=== PATIENT | female | born 1950 | race Caucasian/White ===

== ENCOUNTER → 2019-04-23 14:22 | Outpatient (CLI) | payer MEDICARE, SELFPAY ==
--- NOTE | ~2019-04-23 | XR_ITS ---
XR lumbar spine 2-3V DATE: 04/23/2019 14:39 INDICATION: Low back pain TECHNIQUE: AP, lateral, coned lateral lumbosacral views COMPARISON: None FINDINGS: Diffuse osteopenia. Mild dextroscoliosis of the lumbar spine. There is prominent degenerative change at the apophyseal joints in the lower lumbar and lumbosacral a brown with associated grade 1 anterolisthesis at L4-5. There is mild degenerative disease at L1-2, L2-3, mild/moderate degenerative disc disease at L3-4. There is severe degenerative disc disease at L5-S1. No fracture or bone destruction is evident. The included lower thoracic and lumbar pedicles are intac t. The sacroiliac joints are normal. Surgical clips, right upper quadrant, likely due to cholecystectomy. IMPRESSION: Degenerative changes including multilevel degenerative disease, most severe at L5-S1, and degenerative change at the apophyseal joints with associated grade 1 anterolisthesis at L4-5 Reviewed, dictated and finalized at location B. ROLOGIST IMPRESSION: Degenerative changes including multilevel degenerative disease, mos t severe at L5-S1, and degenerative change at the apophyseal joints with associ ated grade 1 anterolisthesis at L4-5
== END ==
PROVIDERS: PCP Family Medicine Adolescent Medicine; Visit Provider Family Medicine Adolescent Medicine
DX: M54.5 Low back pain (principal); M51.37 Other intervertebral disc degeneration, lumbosacral region; M43.16 Spondylolisthesis, lumbar region
CPT/HCPCS: 72100

== ENCOUNTER → 2019-10-04 12:47 | Outpatient (CLI) | payer MEDICARE, SELFPAY ==
--- NOTE | ~2019-10-04 | XR_ITS ---
EXAMINATION: XR hip BI wo pelvis DATE: 10/04/2019 13:07 INDICATION: Bilateral hip pain. TECHNIQUE: 2 views of right hip and 2 views of left hip were obtained. COMPARISON: None. FINDINGS: Bone alignment is normal. No fracture. There is severe osteoarthritis of the hips. Osteitis pubis is noted. IMPRESSION: 1. Severe osteoarthritis of the hips. Reviewed, dictated and finalized at location A.
== END ==
PROVIDERS: PCP Family Medicine Adolescent Medicine; Visit Provider Family Medicine Adolescent Medicine
DX: M25.552 Pain in left hip (principal); M25.551 Pain in right hip; M16.0 Bilateral primary osteoarthritis of hip
CPT/HCPCS: 73521

== ENCOUNTER → 2019-10-16 10:08 | Outpatient (CLI) | payer MEDICARE, SELFPAY ==
--- NOTE | ~2019-10-16 | DEXA_ITS ---
Bone Density Report Name: Darlene Verdugo Age: 69 Sex: Female Ethnicity: White Date of : 1950 Indication: postmenopausal; screening for osteoporosis; prior fracture; hysterectomy; Referring Provider: YANI ALVAREZ Study: Bone densitometry was performed. Exam Date: October 16, 2019 Accession number: [id number] Bone Density: Region BMD T-score Z-score Classification AP Spine (L1-L4) 1.010 -0.3 1.7 Normal Femoral Neck (Left) 0.680 -1.5 0.2 Osteopenia Total Hip (Left) 0.877 -0.5 0.9 Normal Femoral Neck (Right) 0.713 -1.2 0.5 Osteopenia Total Hip (Right) 0.828 -0.9 0.5 Normal Total Hip Mean 0.853 -0.7 0.7 Normal World Health Organization criteria for BMD impression classify patients as: Normal (T-score at or above -1.0), Osteopenia (T-score between -1.0 and -2.5), or Osteoporosis (T-score at or below -2.5). 10-year Fracture Risk(1): Major Osteoporotic Fracture 14% Hip Fracture 1.6% Reported Risk Factors: [place] (), Neck BMD=0.680, BMI=41.4, previous fracture (1) FRAX(R) Version 3.08. Fracture probability calculated for an untreated patient. Fracture probability may be lower if the patient has received treatment. Clinical Information Provided by Patient: Has had a low trauma fracture Has used the following medications: Vitamin D, Calcium Has the following medical conditions: Hysterectomy Patient maximum height was 64 Menopause Age: 53 No regular weight bearing exercise Does not regularly consume dairy products Drinks caffeinated beverages Onset of menses at age 12 Number of children 2 Impression: The patient has low bone mass, based on the Left Femoral Neck T-score. The patient has an estimated ten-year risk of hip fracture of 1.6% and an estimated ten-year risk of major fracture of 14%, based on the WHO FRAX algorithm. The patient has risk factors, including: previous fracture. Discussion: BONE DENSITY IS LOW AT ONE OR MORE SKELETAL SITES. This patient's lowest T-score is low at one or more skeletal sites. It meets the World Health Organization's (WHO) criteria for ?low bone mass? (T-score between -1.0 and -2.5). The patient's 10-year risk of fracture as calculated by FRAX is less than the threshold where pharmacological therapy is recommended by the National Osteoporosis Foundation (NOF). However, all treatment decisions require clinical judgment and consideration of individual patient factors, including patient preferences, comorbidities, previous drug use, risk factors not captured in the FRAX model (e.g., frailty, falls, vitamin D deficiency, increased bone turnover, interval significant decline in bone density) and possible under or overestimation of fracture risk by FRAX. The patient should follow a healthful lifestyle (good nutrition with adequate calcium and vitamin
== END ==
PROVIDERS: PCP Family Medicine Adolescent Medicine; Visit Provider Family Medicine Adolescent Medicine
DX: Z78.0 Asymptomatic menopausal state (principal); M85.89 Other specified disorders of bone density and structure, multiple sites
CPT/HCPCS: 77080

== ENCOUNTER 2019-12-28 06:47 | Outpatient (NON) | payer MEDICARE, SELFPAY ==
[2019-12-28 17:45] LABS: SARS-CoV-2 RNA PCR Positive
== END 2019-12-28 06:48 ==
PROVIDERS: PCP Family Medicine Adolescent Medicine; Visit Provider Family Medicine Adolescent Medicine
DX: U07.1 COVID-19 (principal)
CPT/HCPCS: 87635; C9803; U0003

== ENCOUNTER 2020-03-27 09:44 | Outpatient (CLI) | payer MEDICARE, SELFPAY ==
--- NOTE | 2020-03-27 | ECG_ITS ---
Measurements Intervals [place] Rate: 88 P: 38 MI: 163 QRS: 5 QRSD: 93 T: 73 QT: 363 QTc: 441 Interpretive Statements SINUS RHYTHM VENTRICULAR BIGEMINY POSSIBLE LEFT ATRIAL ENLARGEMENT DELAYED PRECORDIAL R/S TRANSITION NONSPECIFIC T-WAVE ABNORMALITY- HIGH LATERAL LEADS ABNORMAL ECG Electronically Signed On 03-27-2020 11:15:00 BUSINESS TEAM LEADER by Eduardo Aguilar D.O.
[2020-03-27 10:32] LABS: Albumin Level 4.3 g/dL (3.5-5.1); Estimated Glomerular Filt Rate > 60
== END 2020-03-27 09:45 | disposition home or self-care (01) ==
PROVIDERS: PCP Family Medicine Adolescent Medicine; Visit Provider Orthopaedic Surgery
DX: Z01.818 Encounter for other preprocedural examination (principal); M16.11 Unilateral primary osteoarthritis, right hip; R94.31 Abnormal electrocardiogram [ECG] [EKG]
CPT/HCPCS: 36415; 82040; 82565; 93005

== ENCOUNTER 2020-04-09 07:55 | Outpatient (CLI) | payer MEDICARE, SELFPAY ==
[2020-04-09 09:09] LABS: Basophils Absolute Auto 0.1 K/mm3 (0.0-0.1); Basophils Percent Auto 0.8 % (0.2-1.2); Eosinophils Absolute Auto 0.2 K/mm3 (0-0.3); Eosinophils Percent Auto 2.2 % (0-4.4); Hematocrit 46.1 % (37.0-47.0); Hemoglobin 15.4 g/dL (12.0-15.0); Immature Granulocyte Absolute 0.03 K/mm3 (0.00-0.031); Immature Granulocyte Percent A 0.4 % (0-0.5); Lymphocytes Absolute Auto 2.14 K/mm3 (0.9-3.2); Lymphocytes Percent Auto 27.4 % (18.3-44.2); Mean Corpuscular HGB Conc 33.4 g/dl (32-36); Mean Corpuscular Volume 95.8 fl (80-100); Mean Platelet Volume 11.3 fl (7.4-10.4); Monocytes Absolute Auto 0.7 K/mm3 (0.1-0.6); Monocytes Percent Auto 9.5 % (2.6-8.5); Neutrophils Absolute Auto 4.7 K/mm3 (1.3-6.7); Neutrophils Percent Auto 59.7 % (45.5-73.1); Platelet Count Result 184 k/mm3 (150-375); Red Blood Count 4.81 M/mm3 (4.2-5.4); Red Cell Distribution Width 13.3 % (11.5-14.5); White Blood Count 7.8 K/mm3 (4.5-10.0)
[2020-04-09 09:19] LABS: Glucose 119 mg/dL (65-105)
[2020-04-09 09:23] LABS: Urine Cotinine NEGATIVE
== END 2020-04-09 07:56 | disposition home or self-care (01) ==
LOC: ANHSURGERY 07:59
PROVIDERS: PCP Family Medicine Adolescent Medicine; Visit Provider Orthopaedic Surgery
DX: Z01.818 Encounter for other preprocedural examination (principal); M16.0 Bilateral primary osteoarthritis of hip
CPT/HCPCS: 80307; 82947; 83036; 85025; 86850; 86900; 86901; 87081

== ENCOUNTER → 2020-04-19 01:03 | Outpatient (CLI) | payer MEDICARE, SELFPAY ==
[2020-04-19 19:48] LABS: SARS-CoV-2 RNA PCR Negative
== END ==
PROVIDERS: PCP Family Medicine Adolescent Medicine; Visit Provider Orthopaedic Surgery
DX: Z01.812 Encounter for preprocedural laboratory examination (principal); Z20.822 Contact with and (suspected) exposure to COVID-19
CPT/HCPCS: C9803; U0003; U0005

== ENCOUNTER 2020-04-22 00:42 | Day surgery (SDC) | payer MEDICARE, SELFPAY ==
[2020-04-09 08:26] VITALS: BMI 38.9
--- NOTE | 2020-04-21 11:05 | WPDANESEPPF ---
Anes - Initial Pre Proc Eval Procedure: Operation Date: 04/22/20 11:00 Proposed Procedures p Right Total Hip Arthroplasty - Roosevelt Metz MD Date/Time: 04/21/20 11:05 Surgeon: Roosevelt Metz MD Pre Op Diagnosis: Primary OA Right Hip Patient Data Age: 70 Gender: F Height: 1.63 m Weight: 103.1 kg Allergies Allergy/AdvReac Type Severity Reaction Status Date / Time Penicillins Allergy Unknown Rash Verified 04/22/20 09:40 Home Medications Medication Instructions Recorded Confirmed Type atorvastatin 20 mg tablet 20 mg PO QAM 01/02/20 04/22/20 History calcium carbonate-vitamin D3 600 1 tablet PO BID 01/02/20 04/22/20 History mg (1,500 mg)-800 unit tablet diclofenac sodium 75 mg 75 mg PO BID 01/02/20 04/22/20 History tablet,delayed release pantoprazole 40 mg tablet,delayed 40 mg PO QAM 01/02/20 04/22/20 History release vitamin B complex 1 tablet PO QAM 01/02/20 04/22/20 History cholecalciferol (vitamin D3) 125 mcg PO 3XW 04/09/20 04/22/20 History Patient hx anesthesia problems: none Family hx anesthesia problems: none PMFSH Past Medical History Medical History (Updated 04/21/20 @ 11:07 by Aman Jack DO) Brain tumor age 6 Carpal tunnel syndrome of right wrist (~1998) GERD (gastroesophageal reflux disease) Hyperlipidemia Osteoarthritis PONV (postoperative nausea and vomiting) SVT (supraventricular tachycardia) s/p ablation 2012 Surgical History Surgical History (Updated 04/21/20 @ 11:07 by Aman Jack DO) History of breast lump removal (~2012) Left breast History of cholecystectomy History of hysterectomy (~2002) Family History Family History Other Family history of cardiovascular disease Social History Social History Smoking status: Former smoker Tobacco type: cigarettes Second hand tobacco smoke exposure: No Smoking end date: 03/07/88 Alcohol intake: current Substance use: never Substance use type: does not use Living arrangements: with family Spiritual care concerns: No Anes - Eval Final PreProcedure Day of Procedure 04/21/20 11:05 Patient weight: obese Heart: regular rate and rhythm Lungs: clear to auscultation and normal air movement Airway: Mallampati scale class III Neurological: alert and oriented Last oral intake: >/= 8 hours ASA classification: III Emergent: no Anesthetic plan: proceed Anesthesia type and monitoring: general ETT and standard monitoring Informed Consent: The patient's anesthetic plan and its attendant risks and benefits were discussed with the patient/family/POA. Questions were solicited and answers provided to the satisfaction of the patient/family/POA.
[2020-04-22] VITALS (19 sets, daily range): BP systolic 90–135; BP diastolic 52–80; PULSE 50–94; RESP 7–18; TEMP 36.1–36.5; O2SAT 94–99; BMI 43.8
--- NOTE | ~2020-04-22 | XR_ITS ---
EXAMINATION: XR hip RT min 2V DATE: 04/22/2020 14:31 INDICATION: Postoperative evaluation following right total hip arthroplasty TECHNIQUE: Anteroposterior and cross-table lateral views of the right hip were obtained. COMPARISON: None. FINDINGS: Interval placement of a noncemented right total hip arthroplasty which is in near-anatomic alignment. No fracture. Bilateral sacral joint spaces appear relatively preserved. Minimal postoperative gas at the operative bed. IMPRESSION: 1. Right total hip arthroplasty in near-anatomic alignment, negative for postoperative purposes. Reviewed, dictated and finalized at location A. INE OPERATOR IMPRESSION: 1. Right total hip arthroplasty in near-anatomic alignment, negative for postop erative purposes.
[2020-04-22] MEDS: ACETAMINOPHEN 500 MG TABLET 1000 MG PO (09:21)
[2020-04-22] MEDS: LACTATED RINGERS 1,000 ML 30 ML IV CONT ×2 (09:25→13:51)
[2020-04-22] MEDS: TRANEXAMIC ACID 1,000MG/ISO100 1,000 MG/100 ML BAG 200 MG IVPB (09:32)
--- NOTE | 2020-04-22 10:09 | WPDHPUPDATE1 ---
History and Physical Update Update Date/Time: 04/22/20 10:09 History and Physical has been reviewed, including an updated exam of the patient. There are NO changes in the patient's condition. Risks, benefits, and alternatives have been discussed and questions answered. Patient agrees to proceed with procedure.
[2020-04-22] MEDS: FAMOTIDINE 20 MG/2 ML VIAL IV PUSH (10:44)
[2020-04-22] MEDS: CLINDAMYCIN 900 MG/D5W 50 ML 900 MG/50 ML PIGGYBACK 50 MG IVPB (11:14)
[2020-04-22] MEDS: ceFAZolin SODIUM 1 GM VIAL 2 GM IV PUSH (13:41)
[2020-04-22] MEDS: fentaNYL CITRATE INJ (*CRX) 100 MCG/2 ML VIAL 25 MCG IV PUSH (15:08)
--- NOTE | 2020-04-22 15:34 | PM.PROC ---
Procedure Note - Detailed Date of procedure: 04/22/20 Pre-op diagnosis: Primary OA Right Hip Post-op diagnosis: same Procedure performed: Total hip arthroplasty, right. Description of procedure: Surgical exposure was more extensive due to morbid obesity. Bone quality was excellent. The acetabulum had a false floor which was reamed. The anatomic dual mobility component fit nearly anatomically. Bleeding was slightly more than average but was well controlled with the Aquamantys bipolar electrocautery device. No deep drains were necessary. Implants: The Accolade II hip stem, 127 degree size 5 , was utilized with excellent press-fit. The 50 mm ADM acetabular component was impacted with excellent press-fit stability. The +0 , 28 mm Biolox ceramic femoral head was utilized. [facility] Surgeon: Roosevelt Metz MD Paintings Conservator: Annamarie Calderón PA-C Estimated blood loss (mL): 500 Drains: No Complications: None Condition: stable Disposition: PACU Findings: Physician recreational assistant, Annamarie Calderón PA-C, required for surgery; including patient positioning, draping, tissue retraction, maintaining instrument position, hip reduction, wound closure, and dressing placement. OPERATIVE DETAILS: The patient was given preoperative antibiotics. A general anesthetic was administered. The patient was carefully placed in the lateral decubitus position on the PEG board. The shoulders and hips were carefully positioned for component and leg length positioning reference. The hip was prepped and draped in the usual sterile fashion. A longitudinal incision was created over the posterior aspect of the greater trochanter. Careful dissection was brought down through the deep fascia with electrocautery. A minimally invasive optimized posterior approach to the hip was performed. The short external rotators and capsule were taken down in an L-shaped capsulotomy. The tissue was tagged for later repair using number 2 high strength suture. The femoral neck was measured and taken in situ. The femoral head was removed. The acetabulum was carefully exposed. The inferior capsule was released. The labrum was resected. The acetabulum was sequentially reamed to one over the intended cup size. The cup was impacted into position with excellent press-fit. Typical anatomic landmarks, including the bony contact points as well as the inferior transverse acetabular ligament were used to confirm cup positioning with preoperative templating. Attention was turned to the femur, which was carefully exposed. The hip was reamed and then broached sequentially. Excellent press-fit was obtained with the broach. The hip was trialed. Measurements were utilized, including the lesser trochanter as well as the center of the femoral head and the tip of the trochanter, and excellent assessment of the offset and leg lengths were confirmed. The real component was impacted into position. Trialing confirmed appropriate leg length and offset with soft tissue balancing as well apparent feel of the leg, both at the knee and the heel. Soft tissues were assessed using the the iliotibial band. Reduction of the posterior capsule and external rotators were also used as a secondary assessment. The hip was copiously irrigated with pulsatile lavage antibiotic solution periodically throughout the procedure. The real components were then assembled and reduced. The hip was stable throughout typical maneuvers, including extension, external rotation to 70 degrees, the position of sleep as well as flexion to 90 degrees with internal rotation past 45 degrees. The shake test confirmed stability without impingement. Osteophytes were removed as necessary. The short external rotators and capsule were repaired back to the posterior trochanter through drill holes. The deep fascia was repaired with running number 2 Quill suture, followed by 0 Stratafix suture and 2-0 Stratafix suture in the dermis. Steri-Strips were placed on the skin, follo
[2020-04-22 16:18] LABS: Hematocrit 39.7 % (37.0-47.0)
[2020-04-22] MEDS: SODIUM CHLORIDE 0.9% IV 1,000 ML 125 ML IV CONT (16:37)
--- NOTE | 2020-04-22 16:42 | ADMGEN ---
This patient, Darlene Verdugo, was admitted to 2 Medical Room 241-01. Patient/family oriented to hospital policies and general routines including ID bracelet, bed and alarms, visiting hours, pain management, procedures, bathroom and other care routines, personal items, smoking policy, room service/diet, and visiting hours. Information on how to activate the Rapid Response Team has been discussed. Patient/Family are encouraged to report perceived risks to care and to ask questions if they do not understand what they are told or what they should do.
[2020-04-22] MEDS: ONDANSETRON INJ 4 MG/2 ML VIAL IV PUSH ×2 (17:57→22:18)
[2020-04-22] MEDS: ASPIRIN 81 MG ENTERIC TABLET PO (19:27)
[2020-04-22] MEDS: DOCUSATE SODIUM 100 MG CAPSULE PO (19:28)
[2020-04-22] MEDS: MELOXICAM 7.5 MG TABLET PO (19:29)
[2020-04-22] MEDS: METOCLOPRAMIDE HCL INJ 10 MG/2 ML VIAL 5 MG IV PUSH (20:07)
[2020-04-22] MEDS: GENTAMICIN SULFATE 0.3% OP OINT 3.5 GM TUBE 1 APPLIC RIGHT EYE (20:12)
[2020-04-22] MEDS: ceFAZolin 2 GM/D5W 50 ML 2 GM/50 ML BAG IVPB (20:19)
--- NOTE | 2020-04-22 20:38 | PM.IMCN ---
Assessment and Plan Assessment and plan (1) History of total right hip arthroplasty: Code(s): Z96.641 - Presence of right artificial hip joint Status: Acute Assessment and Plan: Care per Dr. metz. Patient has not had any complaints as this time. (2) Corneal abrasion: Code(s): S05.00XA - Injury of conjunctiva and corneal abrasion without foreign body, unspecified eye, initial encounter Status: Acute Assessment and Plan: I did order her gentamicin ointment and ketorolac drops. She may need to follow-up with an cleaner. According that clinical up today the right eye should not be patch because she wears contacts. She should avoid wearing any contacts for 2-3 weeks. She will need to follow-up with cleaner. (3) GERD (gastroesophageal reflux disease): Code(s): K21.9 - Gastro-esophageal reflux disease without esophagitis Status: Acute Assessment and Plan: The patient is on pantoprazole. (4) Hyperlipidemia: Code(s): E78.5 - Hyperlipidemia, unspecified Status: Chronic Assessment and Plan: She is on atorvastatin. (5) SVT (supraventricular tachycardia): Code(s): I47.1 - Supraventricular tachycardia Status: Inactive Assessment and Plan: She was ablated x2 and had a cardiac evaluation prior to the surgery. HPI Data of Consult Consult date: 04/22/20 Requesting Physician: Roosevelt Metz MD Primary Care Provider: Khurram Hoffman MD Consult Narrative Narrative: Darlene Verdugo is a 70 year old female who has a history of having degenerative joint disease in her bilateral hips. She has been evaluated by Cardiology prior to her right hip replacement. She has had a history of SVT and was treated on 2 occasions with radiofrequency ablation. The patient had a right total hip arthroplasty today by Dr. metz. Please see operative report. Postoperatively the patient was complaining of some right eye pain. I did use some tetracaine and fluoroscein paper used with a black light and it appears that the patient has a corneal abrasion in the 7 o'clock position of the right eye. I did order her eye drops. Gentamicin ointments and ketorolac drops. The patient has a irritation to that right eye. She does wear contacts but did not have the min today. Patient was admitted by orthopedic physician and she is [place] [facility] [place] I consulted on the patient due to her right eye pain. Date of service is 04/22/2020 for consult. Review of Systems Review of Systems: All systems reviewed & are unremarkable except as noted in HPI and below Constitutional: Constitutional: Reports as per HPI and Reports no additional constitutional complaints Eyes: Eyes: Reports as per HPI and Reports no additional eye complaints ENT: Reports system reviewed and no additional complaints, except as documented and Reports Normal hearing present Cardiovascular: Cardiovascular: Reports no additional cardiovascular complaints Respiratory: Respiratory: Reports no additional respiratory complaints and Reports no additional respiratory complaints Gastrointestinal: Gastrointestinal: Reports as per HPI and Reports no additional gastrointestinal complaints Musculoskeletal: Musculoskeletal: Reports no additional musculoskeletal complaints Integumentary/Breasts: Skin/Breast: Reports system reviewed and no additional complaints, except as docu and Reports as per HPI Neurologic: Reports system reviewed and no additional complaints, except as documented, Reports as per HPI and Reports Normal hearing present Psychiatric: Psychiatric: Reports no additional psychiatric complaints and Reports as per HPI Endocrine: Endocrine: Reports no additional endocrine complaints Hematologic/Lymphatic: Hematologic/Lymphatic: Reports no additional hematologic/lymphatic complaints Allergic/Immunologic: Allergic/Immunologic: Reports no additional allergic/immunologic complain
[2020-04-22] MEDS: KETOROLAC 0.5% OP SOLN 5 ML BOTTLE 1 DROP RIGHT EYE (21:27)
[2020-04-23 02:00] VITALS: BP 124/63; PULSE 92; RESP 18; TEMP 36.6; O2SAT 100
[2020-04-23 03:14] VITALS: O2SAT 96
[2020-04-23] MEDS: SODIUM CHLORIDE 0.9% IV 1,000 ML 125 ML IV CONT (03:19)
[2020-04-23] MEDS: ceFAZolin 2 GM/D5W 50 ML 2 GM/50 ML BAG IVPB ×2 (03:33→11:18)
[2020-04-23 04:51] VITALS: BP 103/61; PULSE 81; RESP 18; TEMP 36.5; O2SAT 97
[2020-04-23 05:57] LABS: Basophils Percent Auto 0.1 % (0.2-1.2); Hematocrit 35.8 % (37.0-47.0); Hemoglobin 11.8 g/dL (12.0-15.0); Immature Granulocyte Absolute 0.07 K/mm3 (0.00-0.031); Immature Granulocyte Percent A 0.5 % (0-0.5); Lymphocytes Absolute Auto 1.23 K/mm3 (0.9-3.2); Mean Corpuscular Hemoglobin 31.4 pg (26-34); Mean Corpuscular Volume 95.2 fl (80-100); Mean Platelet Volume 11.7 fl (7.4-10.4); Monocytes Absolute Auto 1.3 K/mm3 (0.1-0.6); Monocytes Percent Auto 8.6 % (2.6-8.5); Neutrophils Absolute Auto 12.7 K/mm3 (1.3-6.7); Neutrophils Percent Auto 82.8 % (45.5-73.1); Platelet Count Result 156 k/mm3 (150-375); Red Blood Count 3.76 M/mm3 (4.2-5.4); Red Cell Distribution Width 13.2 % (11.5-14.5); White Blood Count 15.3 K/mm3 (4.5-10.0)
[2020-04-23 06:31] LABS: Anion Gap 7 mmol/L (8-16); Blood Urea Nitrogen 19 mg/dL (7-17); Calcium 8.2 mg/dL (8.4-10.2); Carbon Dioxide 26 mmol/L (22-30); Chloride 106 mmol/L (98-107); Estimated CRCL calculation 94 ml/min; Estimated Glomerular Filt Rate > 60; Glucose 146 mg/dL (65-105); Potassium 4.3 mmol/L (3.4-5.0); Sodium 139 mmol/L (137-145)
--- NOTE | 2020-04-23 07:37 | P.PNAN_ITS ---
Anes - Prog Note Post-Op Date/Time: 04/23/20 07:37 Cardiovascular status: normal Respiratory status: normal Airway patency: baseline Mental status: baseline Post-Op hydration status: normal Vital Signs: Last Vital Signs Temp 36.5 C 04/23/20 04:51 Pulse 81 04/23/20 04:51 Resp 18 04/23/20 04:51 BP 103/61 04/23/20 04:51 Pulse Ox 97 04/23/20 04:51 Pain Score (VAS): no complaints I/O: Intake & Output 04/22/20 04/22/20 04/23/20 15:59 23:59 07:59 Intake Total 906 343 2884 Output Total 300 Balance 640 268 7862 Laboratory Tests 04/23/20 05:12 04/23/20 05:12 04/22/20 04/23/20 04/23/20 16:12 05:12 05:12 WBC 15.3 H RBC 3.76 L Hgb 13.0 11.8 L Hct 39.7 35.8 L MCV 95.2 MCH 31.4 MCHC 33.0 RDW 13.2 Plt Count 156 MPV 11.7 H Immature Gran % (Auto) 0.5 Neut % (Auto) 82.8 H Lymph % (Auto) 8.0 L Mcculloch % (Auto) 8.6 H Eos % (Auto) 0.0 Baso % (Auto) 0.1 L Lymph # (Auto) 1.23 Mcculloch # (Auto) 1.3 H Eos # (Auto) 0.0 Baso # (Auto) 0.0 Abs Immat Gran (auto) 0.07 H Absolute Neuts (auto) 12.7 H Absolute Nucleated RBC 0.0 Nucleated RBC % 0.0 Sodium 139 Potassium 4.3 Chloride 106 Carbon Dioxide 26 Anion Gap 7 L BUN 19 H Creatinine 0.60 L Estim Creat Clear Calc 94 Estimated GFR > 60 Glucose 146 H Calcium 8.2 L Post-procedural complaints: none Patient Feedback: Patient satisfied with anesthetic care.
[2020-04-23] MEDS: ATORVASTATIN 20 MG TABLET PO (09:26)
[2020-04-23] MEDS: ASPIRIN 81 MG ENTERIC TABLET PO (09:26)
[2020-04-23] MEDS: MELOXICAM 7.5 MG TABLET PO (09:27)
[2020-04-23] MEDS: DOCUSATE SODIUM 100 MG CAPSULE PO (09:27)
[2020-04-23] MEDS: PANTOPRAZOLE 40 MG TABLET PO (09:27)
[2020-04-23 09:45] VITALS: BP 122/69; PULSE 70; RESP 16; TEMP 36.4; O2SAT 98
--- NOTE | 2020-04-23 12:11 | PM.DS ---
DS: Admitting Diagnosis Admitting Diagnosis Admitting Diagnosis: Hip osteoarthritis. DS: Discharge Diagnosis Discharge Diagnosis (1) History of total right hip arthroplasty: Code(s): Z96.641 - Presence of right artificial hip joint Status: Acute DS: Summary Hospital Course Reason for hospitalization: Total hip arthroplasty. Hospital Course: Tolerated surgery well. Progressed appropriately with therapy. Status at Discharge Functional status at discharge: uses cane/walker Overall status at discharge: patient is progressing back to baseline Time Spent with Patient Time attestation: Total time spent providing and/or coordinating discharge services: Exam Const: General: no acute distress Resp: Effort & Inspection: normal respiratory effort Skin: Other: Wound healing well. Mepilex dressing intact. No hematoma or drainage. Neuro: Motor exam (neuro): 5/5 motor strength present throughout Sensory Exam: normal sensation Psych: Mental Status: mental status grossly normal Speech and movement: Normal speech and movement present DS: Data Data Completed and Pending Labs on day of discharge: Labs from last 24 hours 04/23/20 04/23/20 04/22/20 05:12 05:12 16:12 WBC 15.3 H RBC 3.76 L Hgb 11.8 L 13.0 Hct 35.8 L 39.7 MCV 95.2 MCH 31.4 MCHC 33.0 RDW 13.2 Plt Count 156 MPV 11.7 H Immature Gran % (Auto) 0.5 Neut % (Auto) 82.8 H Lymph % (Auto) 8.0 L Dickey % (Auto) 8.6 H Eos % (Auto) 0.0 Baso % (Auto) 0.1 L Lymph # (Auto) 1.23 Dickey # (Auto) 1.3 H Eos # (Auto) 0.0 Baso # (Auto) 0.0 Abs Immat Gran (auto) 0.07 H Absolute Neuts (auto) 12.7 H Absolute Nucleated RBC 0.0 Nucleated RBC % 0.0 Sodium 139 Potassium 4.3 Chloride 106 Carbon Dioxide 26 Anion Gap 7 L BUN 19 H Creatinine 0.60 L Estim Creat Clear Calc 94 Estimated GFR > 60 Glucose 146 H Calcium 8.2 L Discharge Plan Discharge Patient Disposition: Home, Self-Care Discharge Instructions: See instruction sheet. Stand Alone Forms: General Discharge Instructions Follow-up/Referrals: Roosevelt Metz MD [Physician] - Discharge Medications: New aspirin 81 mg Tablet,Delayed Release (Dr/Ec) 81 mg PO BID 14 Days Qty: 28 RF: 0 oxycodone-acetaminophen 5-325 mg tablet 1 - 2 tablet PO Q4-6H MDD 6 tablets PRN (Reason: pain) Qty: 30 RF: 0 Continued atorvastatin 20 mg tablet 20 mg PO QAM RF: 0 pantoprazole 40 mg tablet,delayed release (DR/EC) 40 mg PO QAM RF: 0 calcium carbonate-vitamin D3 600 mg(1,500mg) -800 unit tablet 1 tablet PO BID RF: 0 vitamin B complex Tablet 1 tablet PO QAM RF: 0 diclofenac sodium 75 mg tablet,delayed release (DR/EC) 75 mg PO BID RF: 0 cholecalciferol (vitamin D3) 125 mcg (5,000 unit) Capsule 125 mcg PO 3XW RF: 0 Quality VTE Prophylaxis VTE prophylaxis: mechanical ordered
--- NOTE | 2020-04-23 13:28 | PM.IMPN ---
Progress Note: A&P Assessment and Plan (1) History of total right hip arthroplasty: Code(s): Z96.641 - Presence of right artificial hip joint Status: Acute Assessment and Plan: S/p right total hip per Dr. Metz on 04/22/2020. She tolerated the procedure well and her pain is well controlled. Postoperative care including DVT prophylaxis and weight-bearing per orthopedic surgery. She will continue PT as an outpatient. (2) Corneal abrasion: Code(s): S05.00XA - Injury of conjunctiva and corneal abrasion without foreign body, unspecified eye, initial encounter Status: Acute Assessment and Plan: Previous provider performed fluorscein staining due to right eye pain which showed corneal abrasion at 7 o'clock position of right eye. She is a contact lens wearer. She was started on gentamicin eye drops tid which she should continue for 4 more days and will need to follow up with PCP for ophthalmology referral if she does not have symptomatic improvement, however she has already had improvement. She should avoid wearing any contacts for 2-3 weeks. (3) GERD (gastroesophageal reflux disease): Code(s): K21.9 - Gastro-esophageal reflux disease without esophagitis Status: Acute Assessment and Plan: Currently asymtomatic. Continue pantoprazole. (4) Hyperlipidemia: Code(s): E78.5 - Hyperlipidemia, unspecified Status: Chronic Assessment and Plan: Continue atorvastatin. (5) SVT (supraventricular tachycardia): Code(s): I47.1 - Supraventricular tachycardia Status: Inactive Assessment and Plan: She was ablated x2 and had a cardiac evaluation prior to the surgery. Rate is well controlled. Subjective Date/time seen: 04/23/20 13:28 Interval history: Date of service: 04/23/2020 Darlene Verdugo is a 70-year-old female with a history SVT, brain tumor, and carpal tunnel syndrome who is seen following right total hip arthroplasty. she is feeling well at this time her pain is well controlled. She reports some soreness to the right hip but really is not having any pain. She was able to participate in PT this morning and did well. She does have a corneal abrasion of the right eye. At this time, she denies any visual changes and her pain has resolved entirely. Otherwise, she is doing well. She did have an episode of nausea following her procedure but today has been doing well and tolerating a regular diet. She denies dizziness or lightheadedness. Denies abdominal pain, cramping, or bloating. No shortness of breath or cough. She has no additional concerns. Review of Systems Review of Systems: All systems reviewed & are unremarkable except as noted in HPI and below Exam Narrative: Exam Narrative: Ms. Verdugo is a well-nourished, well-appearing 70-year-old female who is lying supine in bed. she appears comfortable and is in NARD. HR 81, BP 103/61 RR 18, T 97.7?, 98% on room air Neuro: awake, alert and oriented x4, speech clear, no focal neuro deficits noted HEENMT: normocephalic, atraumatic, EOMI, sclerae anicteric, no conjunctival erythema or injection, moist oral mucosa, tongue midline, nares patent Neck: supple, no lymphadenopathy Respiratory: clear to auscultation bilaterally, nonlabored breathing Cardio: regular rate, regular rhythm with S1-S2 Abdomen: nondistended, normoactive bowel sounds, soft, nontender to palpation, no rigidity or guarding Extremities: right hip is iced and bandage, bilateral lower extremities with no edema, erythema, cyanosis, clubbing, or tenderness to palpation, DP pulses 2+ bilaterally Skin: no rashes or lesions, warm and dry Psych: appropriate mood and affect, judgment and insight intact Objective Data Vital Signs Vital Signs: Vital Signs - 24 hr 04/22/20 13:51 04/22/20 14:00 04/22/20 14:10 Temperature 97.5 F L Pulse Rate 85 79 82 Respiratory Rate 7 L 10 L 12 Blood Pressure 90/53 L 9
--- NOTE | 2020-04-23 14:04 | PM.PNORT ---
Progress Note: A&P Assessment and Plan (1) History of total right hip arthroplasty: Code(s): Z96.641 - Presence of right artificial hip joint Status: Acute Assessment and Plan: Patient is postop day 1 right total hip arthroplasty. Pain controlled with oral pain medication. We discussed postoperative wound management, postoperative expectations, and postoperative exercises. Patient shows good understanding. Radiographs reviewed showing intact total hip arthroplasty. Good early range of motion. No calf or thigh tenderness. Right side slightly longer than left. We discussed the possible use of a heel insert in her left shoe. She has worked with physical therapy. Patient had a 1 cm [place] of blood on her Mepilex dressing this morning. I change Mepilex dressing this afternoon and reapplied Steri-Strips. The patient's nurse called stating the wound was draining blood. I recommend removing the Mepilex dressing and applying 4 x 4 gauzes with tape. Patient will need to change this 2 times a day for the next week. Steri-Strips will remain on for the next 2 weeks. Plan for discharge today. Patient will follow up in the office in 3 weeks. Aspirin 81 mg b.i.d. for the next 14 days for DVT prophylaxis. Percocet for pain. Subjective Subjective Date/Time Seen: 04/23/20 08:20 Patient is postop day 1 right total hip arthroplasty. Patient is progressing very well. She has been working with therapy. She has manageable pain with oral pain medications. She has passed gas. She has been able to keep down her breakfast. She did state she had a episode of nausea and vomiting yesterday but this has resolved. She has no abdominal pain. No shortness of breath no chest pain. No numbness or tingling in her toes. Review of Systems Review of Systems: All systems reviewed & are unremarkable except as noted in HPI and below Exam Narrative: Exam Narrative: Patient is alert and oriented x3. Dressing had 1 inch [place] of blood. I removed dressing and reapplied steristrips. Wound was not bleeding at that time. Resting comfortably in bed. No acute distress. No erythema or ecchymosis. No rashes or lesions noted. Warm, normal appearing skin. Tenderness at right hip. Right leg slightly longer then left. Calf nontender. Distal pulses palpable. Normal capillary refill. Patient able to move and wiggle toes. Light touch sensation intact. Objective Data Vital Signs Vital Signs: Vital Signs - 24 hr 04/22/20 14:10 04/22/20 14:14 04/22/20 14:25 Temperature Pulse Rate 82 89 Respiratory Rate 12 14 Blood Pressure 114/67 118/72 Pulse Oximetry 95 99 96 04/22/20 14:35 04/22/20 14:40 04/22/20 14:55 Temperature Pulse Rate 65 87 88 Respiratory Rate 14 16 16 Blood Pressure 121/65 120/69 105/68 Pulse Oximetry 96 98 96 04/22/20 15:10 04/22/20 15:20 04/22/20 15:35 Temperature Pulse Rate 85 87 90 Respiratory Rate 16 16 16 Blood Pressure 112/71 109/67 114/63 Pulse Oximetry 95 94 95 04/22/20 15:57 04/22/20 16:15 04/22/20 16:30 Temperature 96.9 F L 97.3 F L Pulse Rate 93 93 94 Respiratory Rate 18 16 16 Blood Pressure 116/73 109/65 114/54 L Pulse Oximetry 97 98 95 04/22/20 17:00 04/22/20 18:00 04/22/20 20:49 Temperature 97.5 F L 97.5 F L Pulse Rate 85 92 Respiratory Rate 18 14 Blood Pressure 108/72 105/53 L Pulse Oximetry 95 96 97 04/22/20 22:00 04/23/20 02:00 04/23/20 03:14 Temperature 97.7 F 97.9 F Pulse Rate 92 92 Respiratory Rate 18 18 Blood Pressure 130/69 124/63 Pulse Oximetry 97 100 96 04/23/20 04:51 04/23/20 09:45 Temperature 97.7 F 97.6 F Pulse Rate 81 70 Respiratory Rate 18 16 Blood Pressure 103/61 122/69 Pulse Oximetry 97 98 Intake/Output Intake/Output: Intake & Output 04/20/20 04/21/20 04/22/20 04/23/20 23:59 23:59 23:59 23:59 Intake Total 800 2670 Output Total 300 Balance 800 2370 Meds/Results Medications: Active Medicat
== END 2020-04-23 15:39 | disposition home or self-care (01) ==
LOC: ANHSURGERY 08:52 → ANH2MED 16:01
PROVIDERS: PCP Family Medicine Adolescent Medicine; Visit Provider Orthopaedic Surgery
PROC: (CPT 27130; principal; 2020-04-22 11:00)
DX: M16.11 Unilateral primary osteoarthritis, right hip (principal); K21.9 Gastro-esophageal reflux disease without esophagitis; E78.5 Hyperlipidemia, unspecified; Z87.891 Personal history of nicotine dependence; E66.01 Morbid (severe) obesity due to excess calories; Z68.41 Body mass index [BMI] 40.0-44.9, adult; S05.01XA Injury of conjunctiva and corneal abrasion without foreign body, right eye, initial encounter; X58.XXXA Exposure to other specified factors, initial encounter
CPT/HCPCS: 27130; 36415; 73502; 80048; 80307; 82947; 83036; 85014; 85018; 85025; 86850; 86900; 86901; 87081; 97110; 97116; 97161; 97165; 97530; 97535; A9270; C1713; C1776; C9803; J0131; J0171; J0690; J1100; J1170; J1885; J2250; J2270; J2370; J2405; J2704; J2710; J2765; J2795; J3010; J7030; J7120; U0003; U0005

== ENCOUNTER 2020-10-08 00:37 | Emergency (ER) | payer MEDICARE, SELFPAY ==
--- NOTE | ~2020-10-08 | XR_ITS ---
EXAMINATION: XR hip RT min 2V DATE: 10/08/2020 01:27 INDICATION: Posterior right hip pain radiating down the leg. TECHNIQUE: Anteroposterior and frog-leg lateral views of the right hip were obtained. COMPARISON: None. FINDINGS: And seen is a noncemented right total hip arthroplasty which appears well seated in near-anatomic ali gnment. No periprosthetic lucency to suggest loosening or infection. No fracture. Mild osteoarthritis at the bilateral sacroiliac joints. Soft tissues are unremarkable. IMPRESSION: 1. Expected appearance of a right total hip arthroplasty. No acute osseous abnormality. Reviewed, dictated and finalized at location A. IMPRESSION: 1. Expected appearance of a right total hip arthroplasty. No acute osseous abno rmality.
[2020-10-08 00:47] VITALS: BP 159/96; PULSE 98; RESP 16; TEMP 36.9; O2SAT 99
--- NOTE | 2020-10-08 02:55 | ED.GENADULT ---
HPI - General Adult General Chief complaint: Extremity Problem,Nontraumatic Stated complaint: right hip pain Time Seen by Provider: 10/08/20 02:31 History of Present Illness HPI narrative: Patient 70-year-old female presents the emergency department with chief complaint of right lower extremity pain. Patient reports that she had a hip surgery back in March and reports this evening she was sitting on the couch and had sudden onset of a sharp pain that shot down her right lower extremity. The patient states started in the right gluteal area and then traversed down her leg to her toes. The patient states it felt like a bolt of lightening shot through her leg. Patient states it was improved whenever she would sit in certain positions and worsened whenever she would ambulate. The patient states that she did have some IT band issues after her surgery but this is the first that she is had an issue like this. Patient denies chest pain denies abdominal pain denies back pain Related Data Home Medications Medication Instructions Recorded Confirmed atorvastatin 20 mg tablet 20 mg PO QAM 01/02/20 04/22/20 calcium carbonate-vitamin D3 600 1 tablet PO BID 01/02/20 04/22/20 mg (1,500 mg)-800 unit tablet diclofenac sodium 75 mg 75 mg PO BID 01/02/20 04/22/20 tablet,delayed release pantoprazole 40 mg tablet,delayed 40 mg PO QAM 01/02/20 04/22/20 release vitamin B complex 1 tablet PO QAM 01/02/20 04/22/20 cholecalciferol (vitamin D3) 125 mcg PO 3XW 04/09/20 04/22/20 Allergies Allergy/AdvReac Type Severity Reaction Status Date / Time Penicillins Allergy Unknown Rash Verified 04/22/20 16:43 Review of Systems Review of Systems: A 10 system review of systems was completed on the patient and is negative except for what is stated in the HPI. Nursing and ancillary documentation was reviewed. [facility] Past Medical History Medical History Brain tumor age 6 Carpal tunnel syndrome of right wrist (~1998) GERD (gastroesophageal reflux disease) Hyperlipidemia Osteoarthritis PONV (postoperative nausea and vomiting) SVT (supraventricular tachycardia) s/p ablation 2012 x2 Surgical History Surgical History History of breast lump removal (~2012) Left breast History of cholecystectomy History of hysterectomy (~2002) History of total right hip arthroplasty Family History Family History Mother Hypothyroidism Father Acute myocardial infarction Other Family history of cardiovascular disease Social History Social History Social History: 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 She is a former smoker. She lives with her . He is the durable power pt sitter for healthcare. She has 2 daughters. She is a full code. No marijuana illicit drugs are alcohol use. Smoking status: Former smoker Tobacco type: cigarettes Second hand tobacco smoke exposure: No Smoking end date: 03/07/88 Alcohol intake: never Substance use: never Substance use type: does not use Gender identity (if verbalized by the patient): Female Spiritual care concerns: No Exam Narrative: GENERAL: Well-appearing, well-nourished, and in no acute distress. HEAD: Normocephalic, atraumatic. EYES: PERRLA and EOMI. ENT: Nares clear, no rhinorrhea or epistaxis. Mucous membranes moist. NECK: Supple. CHEST: Clear to auscultation. No respiratory distress. HEART: Regular rate and rhythm. No murmur heard. Normal peripheral pulses. ABDOMEN: Soft, nontender, nondistended, normal active bowel sounds. EXTREMITIES: Normal range of motion. No edema. Tenderness palpation of the right SI area and the right gluteal area. Patient has no saddle anesthesia no paresthesias in the foot no foot
[2020-10-08] MEDS: HYDROcodone/acetaminophen (*CRX) 5-325 MG TABLET 1 TAB PO (02:58)
[2020-10-08] MEDS: diazePAM INJ (*CRX) 10 MG/2 ML SYRINGE 5 MG IM (02:59)
[2020-10-08] MEDS: KETOROLAC 30 MG/ML VIAL (*BKC) IM (02:59)
== END 2020-10-08 04:02 | disposition home or self-care (01) ==
PROVIDERS: Emergency Provider Emergency Medicine; PCP Family Medicine Adolescent Medicine
DX: M54.31 Sciatica, right side (principal); K21.9 Gastro-esophageal reflux disease without esophagitis; E78.5 Hyperlipidemia, unspecified; M19.90 Unspecified osteoarthritis, unspecified site
CPT/HCPCS: 73502; 96372; 99284; A9270; J1885; J3360

== ENCOUNTER 2020-10-27 14:08 | Emergency (ER) | payer MEDICARE, SELFPAY ==
[2020-10-27 14:42] VITALS: BP 130/86; PULSE 96; RESP 16; TEMP 36.6; O2SAT 98
--- NOTE | 2020-10-27 16:54 | ED.GENADULT ---
HPI - General Adult General Chief complaint: Back Pain/Injury Stated complaint: LOWER BACK PAIN Time Seen by Provider: 10/27/20 16:46 Source: patient Mode of arrival: ambulatory Limitations: no limitations History of Present Illness HPI narrative: Patient is here for treatment for sciatica. She did attempt to go to go to her primary care's office but he is on vacation and she could not get into the other provider. She was seen here in early October for sciatica on the right. She just recently completed a long car ride and developed pain on the left. Pain starts in her left upper buttocks travels through her buttocks to her left thigh. She has been treating at home with Tylenol and ibuprofen with no relief. Denies any urinary or bowel symptoms, no numbness or tingling. Onset (ago): day(s) Relieving factors: none Exacerbating factors: movement Associated symptoms: denies other symptoms Related Data Home Medications Medication Instructions Recorded Confirmed atorvastatin 20 mg tablet 20 mg PO QAM 01/02/20 04/22/20 calcium carbonate-vitamin D3 600 1 tablet PO BID 01/02/20 04/22/20 mg (1,500 mg)-800 unit tablet diclofenac sodium 75 mg 75 mg PO BID 01/02/20 04/22/20 tablet,delayed release pantoprazole 40 mg tablet,delayed 40 mg PO QAM 01/02/20 04/22/20 release vitamin B complex 1 tablet PO QAM 01/02/20 04/22/20 cholecalciferol (vitamin D3) 125 mcg PO 3XW 04/09/20 04/22/20 Allergies Allergy/AdvReac Type Severity Reaction Status Date / Time Penicillins Allergy Unknown Rash Verified 10/27/20 16:18 Review of Systems Review of Systems: All systems reviewed & are unremarkable except as noted in HPI and below PMFSH Past Medical History Medical History Brain tumor age 6 Carpal tunnel syndrome of right wrist (~1998) GERD (gastroesophageal reflux disease) Hyperlipidemia Osteoarthritis PONV (postoperative nausea and vomiting) SVT (supraventricular tachycardia) s/p ablation 2012 x2 Surgical History Surgical History History of breast lump removal (~2012) Left breast History of cholecystectomy History of hysterectomy (~2002) History of total right hip arthroplasty Family History Family History Mother Hypothyroidism Father Acute myocardial infarction Other Family history of cardiovascular disease Social History Social History Social History: 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 She is a former smoker. She lives with her . He is the durable power comprehensive ophthalmologist for healthcare. She has 2 daughters. She is a full code. No marijuana illicit drugs are alcohol use. Smoking status: Former smoker Tobacco type: cigarettes Second hand tobacco smoke exposure: No Smoking end date: 03/07/88 Alcohol intake: never Substance use: never Substance use type: does not use Gender identity (if verbalized by the patient): Female Spiritual care concerns: No Exam Const: General: healthy appearing, no acute distress and alert Orientation/consciousness: patient oriented x3 HENMT: Head: normal to inspection Eyes: Pupils: Equal, round and reactive pupils present Resp: Effort & Inspection: normal respiratory effort Auscultation: clear to auscultation bilaterally Cardio: Rate: regular rate Rhythm: regular rhythm Skin: General skin exam: normal color Neuro: General: moves all extremities and no focal motor deficits Extrem: General: normal to inspection Left lower extremity: full ROM and hip/thigh (pain over SIJ on left) Course Course Emergency Course: Patient is feeling better ready to go. Would like steroids and muscle relaxant as it helped the last time. Vital Signs Vital signs: Vital Signs Temperature 36.6 C 10/27/20 14:42 Pulse R
[2020-10-27] MEDS: CYCLOBENZAPRINE HCL 10 MG TABLET PO (17:33)
[2020-10-27] MEDS: KETOROLAC (*BKC) 60 MG/2 ML VIAL IM (17:33)
== END 2020-10-27 18:20 | disposition home or self-care (01) ==
PROVIDERS: Emergency Provider Emergency Medicine; PCP Family Medicine Adolescent Medicine
DX: M54.32 Sciatica, left side (principal); K21.9 Gastro-esophageal reflux disease without esophagitis; E78.5 Hyperlipidemia, unspecified; M19.90 Unspecified osteoarthritis, unspecified site; Z87.891 Personal history of nicotine dependence
CPT/HCPCS: 96372; 99283; A9270; J1885

== ENCOUNTER → 2020-11-13 13:17 | Outpatient (CLI) | payer MEDICARE, SELFPAY ==
--- NOTE | ~2020-11-13 | MR_ITS ---
EXAMINATION: MR lumbar spine wo con DATE: 11/13/2020 14:16 INDICATION: Left-sided sciatica. Left leg weakness. Low back pain. TECHNIQUE: Magnetic resonance imaging (MRI) of the lumbar spine was performed without intravenous con trast. Sequences included sagittal T2-weighted FSE, sagittal T2-weighted FS FSE, sagittal T1-weighted FSE, and axial T2-weighted FSE. COMPARISON: Lumbar spine radiograph 04/23/2019 FINDINGS: There is 8 degrees dextrocurvature of lumbar spine. There is 3 mm retrolisthesis of L1 on L 2 and L2 on L3 and 3 mm anterolisthesis of L4 on L5. Vertebral body heights are normal. There is a he mangioma in L4 vertebral body. There is mildly decreased disc height at L1-L2, moderately decreased d isc height at L3-L4, and severely decreased disc height at L5-S1 with endplate remodeling. The distal spinal cord signal intensity is normal. The conus medullaris is at L1. The following disc levels are specifically discussed: L1-L2: There is a right central extrusion. There is mild bilateral facet joint osteoarthritis. There is no neural foraminal stenosis. There is mild central canal stenosis. L2-L3: The disc is bulging and has an annular fissure. There is mild bilateral facet joint osteoarthr itis. There is mild bilateral neural foraminal stenosis. There is mild central canal stenosis. L3-L4: The disc is bulging and has an annular fissure. There is severe bilateral facet joint osteoart hritis. There is mild bilateral neural foraminal stenosis. There is mild central canal stenosis. L4-L5: There is a left foraminal extrusion. There is severe bilateral facet joint osteoarthritis. The re is mild bilateral neural foraminal stenosis. There is mild central canal stenosis. L5-S1: The disc is bulging. There is moderate bilateral facet joint osteoarthritis. There is mild charly ateral neural foraminal stenosis. There is no central canal stenosis. IMPRESSION: 1. Severe lumbar spondylosis. Reviewed, dictated and finalized at location A.
== END ==
PROVIDERS: PCP Family Medicine Adolescent Medicine; Visit Provider Family Medicine Adolescent Medicine
DX: M47.817 Spondylosis without myelopathy or radiculopathy, lumbosacral region (principal); M48.07 Spinal stenosis, lumbosacral region
CPT/HCPCS: 72148

== ENCOUNTER → 2021-12-08 13:56 | Outpatient (CLI) | payer MEDICARE, SELFPAY ==
--- NOTE | ~2021-12-08 | XR_ITS ---
XR lumbar spine min 4V 12/08/2021 14:17 Indication: Low back pain. Sciatica. Procedure: 4 views lumbar spine Comparison: 04/23/2019 Findings: There is disc narrowing at all lumbar levels. There is grade 1 degenerative spondylolisthes is at L4-5 and L3-4 secondary to facet hypertrophy. No acute fracture or traumatic malalignment no si gnificant alteration of alignment with flexion/extension. There is dextroscoliosis. There is cholecys tectomy clips. Impression: 1: Severe lumbar spondylosis. Reviewed, dictated and finalized at location B. Impression: 1: Severe lumbar spondylosis.
== END ==
PROVIDERS: PCP Family Medicine Adolescent Medicine; Visit Provider Neurological Surgery
DX: M54.31 Sciatica, right side (principal); M47.816 Spondylosis without myelopathy or radiculopathy, lumbar region
CPT/HCPCS: 72110

== ENCOUNTER 2022-02-03 09:26 | Outpatient (CLI) | payer MEDICARE, SELFPAY ==
--- NOTE | 2022-02-03 09:38 | ECG_ITS ---
Measurements Intervals [place] Rate: 93 P: 27 MS: 159 QRS: -3 QRSD: 95 T: 62 QT: 361 QTc: 451 Interpretive Statements SINUS RHYTHM DELAYED PRECORDIAL R/S TRANSITION LEFT VENTRICULAR HYPERTROPHY WITH ST-T CHANGE BASELINE ARTIFACT- I, II, AVR BORDERLINE ECG COMPARED TO ECG 03/27/2020 10:42:19 NO SIGNIFICANT CHANGES Electronically Signed On 02-03-2022 10:23:29 [employer]TER [employer]SEMBL[employer] by Eduardo Aguilar D.O.
[2022-02-03 10:36] LABS: Basophils Absolute Auto 0.1 K/mm3 (0.0-0.1); Basophils Percent Auto 0.8 % (0.2-1.2); Eosinophils Absolute Auto 0.2 K/mm3 (0-0.3); Hemoglobin 14.7 g/dL (12.0-15.0); Immature Granulocyte Absolute 0.04 K/mm3 (0.00-0.031); Immature Granulocyte Percent A 0.4 % (0-0.5); Lymphocytes Absolute Auto 2.37 K/mm3 (0.9-3.2); Lymphocytes Percent Auto 26.5 % (18.3-44.2); Mean Corpuscular HGB Conc 33.4 g/dl (32-36); Mean Corpuscular Hemoglobin 31.7 pg (26-34); Mean Corpuscular Volume 94.8 fl (80-100); Mean Platelet Volume 11.5 fl (7.4-10.4); Monocytes Absolute Auto 0.8 K/mm3 (0.1-0.6); Monocytes Percent Auto 8.4 % (2.6-8.5); Neutrophils Absolute Auto 5.6 K/mm3 (1.3-6.7); Neutrophils Percent Auto 61.9 % (45.5-73.1); Platelet Count Result 212 k/mm3 (150-375); Red Blood Count 4.64 M/mm3 (4.2-5.4); Red Cell Distribution Width 12.8 % (11.5-14.5)
[2022-02-03 10:36] LABS: Appearance Urine Slightly Cloudy (Clear); Bilirubin Urine Negative (Negative); Blood Urine Negative (Negative); Color Urine Yellow (Yellow); Glucose Urine UA Negative (Negative); Ketones Urine Negative (Negative); Leukocyte Esterase Ur 1+ LEU/UL (Negative); Nitrate Urine Negative (Negative); Protein Urine Trace mg/dL (Negative); Urobilinogen Urine 0.2 mg/dL (<2.0); pH Urine 5.5 (5.0-9.0)
[2022-02-03 10:43] LABS: Anion Gap 10 mmol/L (8-16); Blood Urea Nitrogen 26 mg/dL (7-17); Calcium 9.5 mg/dL (8.4-10.2); Carbon Dioxide 23 mmol/L (22-30); Chloride 104 mmol/L (98-107); Estimated Glomerular Filt Rate > 60; Glucose 226 mg/dL (65-110); Potassium 4.1 mmol/L (3.4-5.0); Sodium 137 mmol/L (137-145)
[2022-02-03 10:47] LABS: Bacteria Urine 2+ /hpf; Mucus Urine Rare /lpf; Squamous Epithelial Cell Urine Many /hpf (Few); Transitional Epi Cells Urine Rare /hpf (None Seen); WBC Urine 16-20 /hpf
[2022-02-03 10:48] LABS: Add Urine Microscopic? YES
[2022-02-03 11:10] LABS: Partial Thromboplastin Time 28.8 SECONDS (22.3-36.8)
== END 2022-02-03 09:27 | disposition home or self-care (01) ==
LOC: ANHSURGERY 09:28
PROVIDERS: PCP Family Medicine Adolescent Medicine; Visit Provider Neurological Surgery
DX: Z01.818 Encounter for other preprocedural examination (principal); M47.816 Spondylosis without myelopathy or radiculopathy, lumbar region; M48.062 Spinal stenosis, lumbar region with neurogenic claudication; M71.38 Other bursal cyst, other site; R94.31 Abnormal electrocardiogram [ECG] [EKG]
CPT/HCPCS: 36415; 80048; 81001; 85025; 85610; 85730; 86850; 86900; 86901; 87086; 93005

== ENCOUNTER 2022-02-11 00:49 | Day surgery (SDC) | payer MEDICARE, SELFPAY ==
[2022-02-01 15:54] VITALS: BMI 40.1
--- NOTE | 2022-02-01 16:08 | PC.NURSE ---
Report to the Outpatient Waiting Room, entrance under the green pavilion located off [facility], at time __9:00AM on date __02/11/22 . Planned Procedure Time: ___11:00AM . Time changes happen often and if your time is changed the preop area will call you the afternoon before. - You and your visitor will be asked to self-screen and do not enter if you have any COVID symptoms. - Only one visitor is requested with a max of two and NO children visitors are allowed at this time. - The patient visitor may be requested to leave or wait in car when not with patient due to distancing restrictions. - A mask is optional within the hospital. Patients may have clear liquids (water, carbonated beverages, clear teas, apple juice) until 3 hours prior to surgery with a maximum of 20 ounces. - No food from midnight until time of surgery Take the following medications with a SIP of water the morning of surgery: ___GABAPENTIN Medications to discontinue per physician __HOLD DICLOFENAC PER DR GALLAGHER, HOLD ALL VITAMINS/SUPPLEMENTS 3 DAYS PRE-OP- LAST DOSE 02/07/22 Please no make-up, nail greek, hairspray, perfume, deodorant, or body powder the day of surgery. No jewelry (including any body piercings) or valuables the day of surgery, leave them at home. Please take a shower or bath the night before, or the morning of, surgery with an antibacterial soap. Wear comfortable, loose fitting clothing. Children are encouraged to wear pajamas. - Jewelry must be removed prior to entering the operating room. Rings and piercings that are not removed may be cut off. - The hospital will not accept responsibility for valuables. - Please leave all valuables, including medications, at home the day of surgery. If you are going home after surgery, a licensed regional tanker truck driver must drive you home. - NO public transportation without another adult if you receive anesthesia. - We recommend that an adult stay with you for 24 hours following discharge. - We also recommend that you do not drive, make important decision, drink alcoholic beverages, or take any drugs that were not prescribed by your health care provider for at least 24 hours after your discharge time. Follow any additional instructions given to you from your surgeon. If you or anyone in your household have experienced Covid symptoms in the past week, please notify your surgeon or the nurse liaison at the phone number below for possible testing. Telephone instructions given to _PATIENT and asked if any additional questions and then verbalized understanding. Patient advised to call surgeon office or pre surgery nurse liaison [phone] if any additional questions.
--- NOTE | 2022-02-10 11:31 | WPDANESEPPF ---
Anes - Initial Pre Proc Eval Procedure: Operation Date: 02/11/22 11:00 Proposed Procedures p Right L3-4, L4-5 Lumbar Ren Laminectomy - Chuck Lorenzo MD Date/Time: 02/10/22 11:31 Surgeon: Chuck Lorenzo MD Pre Op Diagnosis: L3-4, L4-5 stenosis, synovial cyst Patient Data Age: 71 Gender: F Height: 1.63 m Weight: 106 kg Allergies Allergy/AdvReac Type Severity Reaction Status Date / Time Penicillins Allergy Unknown Rash Verified 02/01/22 15:47 Home Medications Medication Instructions Recorded Confirmed Type calcium carbonate 600 mg-vitamin 1 tablet PO BID 01/02/20 02/05/22 History D3 20 mcg (800 unit) tablet gabapentin 300 mg capsule 300 mg PO TID 06/16/21 02/05/22 History diclofenac sodium 75 mg 75 mg PO BID #60 tabs 11/02/21 02/05/22 Rx tablet,delayed release pantoprazole 40 mg tablet,delayed 40 mg PO QAM #90 tabs 01/04/22 02/05/22 Rx release atorvastatin 20 mg tablet 20 mg PO QAM #90 tabs 01/20/22 02/05/22 Rx cholecalciferol (vitamin D3) 125 125 mcg PO WEEKLY 02/01/22 02/05/22 History mcg (5,000 unit) capsule triamcinolone acetonide 0.1 % 1 applic topical BID PRN Rash 02/01/22 02/05/22 History topical cream metformin 500 mg tablet,extended 500 mg PO BID #180 tabs 02/05/22 02/05/22 Rx release 24 hr Patient hx anesthesia problems: post op nausea/vomiting Family hx anesthesia problems: none Results Review: All pre-operative results and documents have been reviewed as part of the pre-operative evaluation. [facility] Past Medical History Medical History Brain tumor age 6 Carpal tunnel syndrome of right wrist (~1998) GERD (gastroesophageal reflux disease) Osteoarthritis PONV (postoperative nausea and vomiting) SVT (supraventricular tachycardia) s/p ablation 2012 x2 Surgical History Surgical History History of breast lump removal (~2012) Left breast History of cholecystectomy History of hysterectomy (~2002) History of total right hip arthroplasty Family History Family History Mother Hypothyroidism Father Family history of cardiovascular disease Heart disease Sibling Hypertension Sibling Hypertension Sibling Hypertension Other Colon polyp Social History Social History Social History: 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 She is a former smoker. She lives with her . He is the durable power web site admin for healthcare. She has 2 daughters. She is a full code. No marijuana illicit drugs are alcohol use. Smoking packs per day: 0.5 Smoking cigarettes per day: 10.0 Years smoked: 5 Smoking pack-years: 2.50 Smoking status: Former smoker Tobacco type: cigarettes Second hand tobacco smoke exposure: No Smoking end date: 09/05/79 Alcohol intake: never Substance use: never Substance use type: does not use Living arrangements: with family Additional living arrangements comments: Gender identity (if verbalized by the patient): Female Sexual Orientation (if Verbalized by the Patient): Straight or Heterosexual Spiritual care concerns: No Agree to blood products: Yes Anes - Eval Final PreProcedure Day of Procedure 02/10/22 11:31 Patient weight: morbidly obese Heart: regular rate and rhythm Lungs: clear to auscultation Airway: Mallampati scale class II Neurological: alert and oriented Last oral intake: >/= 8 hours ASA classification: III Emergent: no Anesthetic plan: proceed Anesthesia type and monitoring: general ETT and standard monitoring Results Review: All pre-operative results and documents have been reviewed as part of the pre-operative evaluation. Informed Consent: The patient's anesthetic plan and its attendant risks and benefits were discussed w
[2022-02-11] VITALS (9 sets, daily range): BP systolic 115–167; BP diastolic 72–97; PULSE 84–104; RESP 12–20; TEMP 36.4–37.2; O2SAT 92–98
--- NOTE | ~2022-02-11 | XR_ITS ---
XR fluoroscopy no charge Lumbar laminectomy procedure TECHNIQUE: Fluoroscopy used during lumbar laminectomy procedure performed by [Chuck Lorenzo MD] on 02/11/2022. 3 seconds of fluoroscopy with 1 images captured. ] FINDINGS: Correlate with procedure note. IMPRESSION: Fluoroscopy used during lumbar laminectomy procedure. Please refer to procedural details. Reviewed, dictated and finalized at location A. CTOR
[2022-02-11] MEDS: LACTATED RINGERS 1,000 ML 30 ML IV CONT ×2 (06:50→10:00)
[2022-02-11 06:54] LABS: Glucose Point of Care 138 mg/dl (65-105)
--- NOTE | 2022-02-11 07:30 | PM.IMHP ---
H&P: HPI History of Present Illness Date/Time: 02/11/22 07:30 Chief Complaint: Back and leg pain Narrative: Darlene is a 71-year-old female with back and leg pain related to stenosis in the canal causing neurologic compression and claudicatory and radicular symptoms who presents now for a right L3-4 L4-5 hemilaminectomy. She has not changed appreciably since we saw her last except getting slightly worse. She is not having bowel or bladder difficulty. She does not have specific muscle group weakness or dermatomal numbness. Review of Systems Review of Systems: Patient denies shortness of breath, cough, fever, chills, nausea, vomiting, weight loss, weight gain, chest pain, dysuria. She has back and leg pain as above. Her review systems is otherwise negative on 12 systems except as noted elsewhere. [facility] Past Medical History Medical History Brain tumor age 6 Carpal tunnel syndrome of right wrist (~1998) GERD (gastroesophageal reflux disease) Osteoarthritis PONV (postoperative nausea and vomiting) SVT (supraventricular tachycardia) s/p ablation 2013 x2 Surgical History Surgical History History of breast lump removal (~2012) Left breast History of cholecystectomy History of hysterectomy (~2002) History of total right hip arthroplasty Family History Family History Mother Hypothyroidism Father Family history of cardiovascular disease Heart disease Sibling Hypertension Sibling Hypertension Sibling Hypertension Other Colon polyp Social History Social History Social History: 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 She is a former smoker. She lives with her . He is the durable power deputy attorney general for healthcare. She has 2 daughters. She is a full code. No marijuana illicit drugs are alcohol use. Smoking packs per day: 0.5 Smoking cigarettes per day: 10.0 Years smoked: 5 Smoking pack-years: 2.50 Smoking status: Former smoker Tobacco type: cigarettes Second hand tobacco smoke exposure: No Smoking end date: 09/05/79 Alcohol intake: never Substance use: never Substance use type: does not use Living arrangements: with family Additional living arrangements comments: Gender identity (if verbalized by the patient): Female Sexual Orientation (if Verbalized by the Patient): Straight or Heterosexual Spiritual care concerns: No Agree to blood products: Yes Meds Home Medications and Allergies Home Medications Medication Instructions Recorded Confirmed Type calcium carbonate 600 mg-vitamin 1 tablet PO BID 01/02/20 02/05/22 History D3 20 mcg (800 unit) tablet gabapentin 300 mg capsule 300 mg PO TID 06/16/21 02/05/22 History diclofenac sodium 75 mg 75 mg PO BID #60 tabs 11/02/21 02/05/22 Rx tablet,delayed release pantoprazole 40 mg tablet,delayed 40 mg PO QAM #90 tabs 01/04/22 02/05/22 Rx release atorvastatin 20 mg tablet 20 mg PO QAM #90 tabs 01/20/22 02/05/22 Rx cholecalciferol (vitamin D3) 125 125 mcg PO WEEKLY 02/01/22 02/05/22 History mcg (5,000 unit) capsule triamcinolone acetonide 0.1 % 1 applic topical BID PRN Rash 02/01/22 02/05/22 History topical cream metformin 500 mg tablet,extended 500 mg PO BID #180 tabs 02/05/22 02/05/22 Rx release 24 hr Allergies Allergy/AdvReac Type Severity Reaction Status Date / Time Penicillins Allergy Unknown Rash Verified 02/11/22 07:32 Exam Narrative: Strength is normal the bilateral lower extremities to direct confrontation. Sensation is intact to light touch throughout the lower extremities. Breathing is unlabored. Regular rate Assessment and Plan Assessment and plan (1) Synovial cyst of lumbar facet joint: Code(s):
--- NOTE | 2022-02-11 07:33 | WPDHPUPDATE1 ---
History and Physical Update Update Date/Time: 02/11/22 07:33 History and Physical has been reviewed, including an updated exam of the patient. There are NO changes in the patient's condition. Risks, benefits, and alternatives have been discussed and questions answered. Patient agrees to proceed with procedure.
[2022-02-11] MEDS: ceFAZolin 2 GM/D5W 50 ML 2 GM/50 ML BAG IVPB (07:39)
[2022-02-11] MEDS: LIDO 1%/EPINEPHRINE/PF 1:200,000 30 ML VIAL 10 ML XX (08:13)
[2022-02-11] MEDS: fentaNYL CITRATE INJ (*CRX) 100 MCG/2 ML VIAL 25 MCG IV PUSH ×6 (10:00→11:13)
[2022-02-11 10:11] LABS: Glucose Point of Care 169 mg/dl (65-105)
[2022-02-11] MEDS: oxyCODONE HCL (*CRX) 5 MG TAB IR PO (11:20)
[2022-02-11] MEDS: ONDANSETRON INJ 4 MG/2 ML VIAL IV PUSH (12:21)
--- NOTE | 2022-02-11 15:46 | SUR.PHASEII ---
Patient has called RN twice since discharge complaining of a corneal abrasion. RN gave her suggestions and told her to call her primary doctor and see if she could get anything to help. Patient didn't complain of eye hurting while in outpatient to RN.
--- NOTE | 2022-03-02 19:44 | P.OP_ITS ---
Procedure Note - Detailed Date of Procedure 03/02/22 Pre-op Diagnosis L3-4, L4-5 stenosis, synovial cyst Post-op Diagnosis Same Procedure Performed Right L3-4 L4-5 hemilaminectomy for central canal decompression Surgeon Chuck Lorenzo MD Anesthesia General Indications Darlene is a 71-year-old female with back and leg pain and claudicatory issues related to central canal narrowing who presents for central canal decompression by way of right-sided hemilaminectomy at L3-4 and L4-5. Description of Procedure the patient was brought to the operating room in the supine position, was sedated, intubated and placed under general anesthesia in routine fashion. She was then turned into the prone position on a Guevara frame. The area of operation on her back was examined, marked for incision, prepped and draped in routine sterile fashion. Incision was marked over the L3 through 5 spinous processes in the midline. This area was injected with 0.5% lidocaine with 1- 940009 epinephrine. Intravenous antibiotics given prior to incision. Incision was made with a 10 blade scalpel down to the lumbodorsal fascia. A subperiosteal dissection of the muscle and soft tissue away from spinous process and lamina at L3-5 on the right was performed with a subperiosteal elevator and Bovie cautery. I verifying x-rays obtained to verify the level of operation. A Midas-Aung drill was used to perform a hemilaminectomy and medial facetectomy. Under microscopy the yellow ligament was lifted ipsilaterally and removed using Kerrison punches. The lamina and spinous process were undercut using a Midas Aung drill. A curved curette was used to define a plane with the dura on the right and to lift overgrown ligament for removal with Kerrison punches. This was done until a dental instrument could be placed in the lateral recess to confirm lack compression. Likewise contralaterally the curved curette was used to define a plane and Kerrison punches were used to remove overgrown bone and ligament until each pedicle could be felt in each foramen observed. The wound was then copiously irrigated with bacitracin irrigation all bleeding was stopped with bipolar and Bovie cautery and Gelfoam thrombin powder. The wound was then closed in layered fashion with 2-0 Vicryl interrupted sutures in the lumbodorsal fascia and Aldo's layer. 3-0 Vicryl buried interrupted sutures were placed in the dermis and the skin was closed with a running 4-0 Monocryl subcuticular stitch and dressed with Dermabond and a Telfa and Tegaderm dressing. Patient was then allowed to wake up in the operating room was taken to the recovery room in stable condition. There were no immediate complications of this operation. All counts were reported correct at the end of case. Blood loss was 50 cc. The patient was neurologically at her baseline postoperatively. CPT Codes: 62138, 12031 Estimated Blood Loss 50 IV Fluids 1,000 Disposition PACU [facility] Billing Surgery - Charge Forward: Surgery Billing
== END 2022-02-11 12:49 | disposition home or self-care (01) ==
PROVIDERS: PCP Family Medicine Adolescent Medicine; Visit Provider Neurological Surgery
PROC: (CPT 63030; principal; 2022-02-11 07:30)
DX: M48.061 Spinal stenosis, lumbar region without neurogenic claudication (principal); M71.38 Other bursal cyst, other site; M47.816 Spondylosis without myelopathy or radiculopathy, lumbar region; K21.9 Gastro-esophageal reflux disease without esophagitis; Z79.84 Long term (current) use of oral hypoglycemic drugs; Z87.891 Personal history of nicotine dependence; E66.01 Morbid (severe) obesity due to excess calories; Z68.39 Body mass index [BMI] 39.0-39.9, adult
CPT/HCPCS: 63047; 63048; 36415; 80048; 81001; 82948; 85025; 85610; 85730; 86850; 86900; 86901; 87086; 93005; 99199; A9270; J0690; J1100; J1170; J2405; J2704; J3010; J7120

== ENCOUNTER → 2022-04-30 10:29 | Outpatient (CLI) | payer MEDICARE, SELFPAY ==
--- NOTE | ~2022-04-30 | MR_ITS ---
MRI of the left knee Clinical history: Pain Technique: Coronal proton density and proton density-weighted images, sagittal proton-density and T2 fat-sat images, and axial proton-density fat-saturated images were acquired. Findings: Anterior and posterior cruciate ligaments are intact. Medial collateral ligament and the la teral collateral ligament complex are intact. Popliteus tendon is intact. There is a large vertical/radial tear at the posterior horn of the medial meniscus, near the posterio r root. No lateral meniscal tear seen. There is a small linear T1 hypointensity in the subchondral region in the medial tibial plateau, cons istent with subchondral sufficiency fracture. There is extensive surrounding marrow edema in the medi al tibial plateau region. Possible additional very subtle subchondral sufficiency fracture in the med ial femoral condyle, with extensive marrow edema also present in the medial femoral condyle. There is underlying extensive high-grade chondromalacia of the medial femoral condyle. Articular cartilage in the lateral compartment is well preserved. There is patchy mild to moderate chondral malacia of the patellofemoral compartment. Small tricompartmental osteophytes are present. Extensor mechanism is intact. Small joint effusion present. No significant Bobby's cyst. Impression: Probable small subchondral insufficiency fractures in both the medial femoral condyle and medial tibi al plateau, with extensive marrow edema throughout these regions. Underlying large radial/vertical tear of the posterior horn medial meniscus near the posterior root. High-grade chondromalacia of the medial compartment, as detailed above. Mild degenerative change of t he lateral and patellofemoral compartments, as detailed above. Reviewed, dictated and finalized at location . NING PROGRAM DEVELOPER Impression: Probable small subchondral insufficiency fractures in both the medial femoral c ondyle and medial tibial plateau, with extensive marrow edema throughout these regions. Underlying large radial/vertical tear of the posterior horn medial meniscus candy r the posterior root. High-grade chondromalacia of the medial compartment, as detailed above. Mild de generative change of the lateral and patellofemoral compartments, as detailed a edmond.
== END ==
PROVIDERS: PCP Family Medicine Adolescent Medicine; Visit Provider Physician Assistant Surgical
DX: S83.242A Other tear of medial meniscus, current injury, left knee, initial encounter (principal); M22.42 Chondromalacia patellae, left knee; T14.90XA Injury, unspecified, initial encounter
CPT/HCPCS: 73721

== ENCOUNTER → 2022-08-05 11:12 | Outpatient (CLI) | payer MEDICARE, SELFPAY ==
--- NOTE | ~2022-08-05 | MR_ITS ---
EXAMINATION: MR lumbar spine wo/w con DATE: 08/05/2022 12:03 INDICATION: Lumbar spondylosis without myelopathy or radiculopathy. Low back pain. Bilateral leg pain . TECHNIQUE: Magnetic resonance imaging (MRI) of the lumbar spine was performed without and with 20 mL MultiHance intravenous contrast. COMPARISON: Lumbar spine MRI 11/13/2020 FINDINGS: There is 3 mm retrolisthesis of L1 on L2 and L2 on L3 and 3 mm anterolisthesis of L4 on L5. Vertebral body heights are normal. There is mildly decreased disc height at L1-L2 and L2-L3, moderat joby decreased disc height at L3-L4, and severely decreased disc height at L5-S1. The distal spinal co rd signal intensity is normal. The conus medullaris is at L1. The following disc levels are specifica lly discussed: L1-L2: The disc is bulging with superimposed right central extrusion. There is mild bilateral facet j oint osteoarthritis. There is mild right neural foraminal stenosis. There is mild central canal steno sis. L2-L3: The disc is bulging and has an annular fissure. There is moderate right and mild left facet yg int osteoarthritis. There is mild right and moderate left neural foraminal stenosis. There is mild ce ntral canal stenosis. L3-L4: The disc is bulging and has an annular fissure. There is severe bilateral facet joint osteoart hritis. There is mild right and moderate left neural foraminal stenosis. There is mild central canal stenosis. There is moderate stenosis in right lateral recess. There is enhancing granulation tissue i n the epidural space. L4-L5: The disc is bulging and has an annular fissure. There is severe bilateral facet joint osteoart hritis. There is mild bilateral neural foraminal stenosis. There is mild central canal stenosis. Ther e is enhancing granulation tissue in the epidural space. L5-S1: The disc is bulging and has an annular fissure. There is moderate bilateral facet joint osteoa rthritis. There is mild bilateral neural foraminal stenosis. There is no central canal stenosis. IMPRESSION: 1. Severe lumbar spondylosis. Reviewed, dictated and finalized at location A.
== END ==
PROVIDERS: PCP Family Medicine Adolescent Medicine; Visit Provider Neurological Surgery
DX: M47.816 Spondylosis without myelopathy or radiculopathy, lumbar region (principal); M51.26 Other intervertebral disc displacement, lumbar region
CPT/HCPCS: 72158; A9577

== ENCOUNTER 2023-01-14 10:36 | Outpatient (CLI) | payer MEDICARE, SELFPAY ==
--- NOTE | 2023-01-14 11:42 | ECG_ITS ---
Measurements Intervals [place] Rate: 82 P: 29 TN: 167 QRS: -4 QRSD: 96 T: 44 QT: 397 QTc: 465 Interpretive Statements SINUS RHYTHM FREQUENT VENTRICULAR PREMATURE COMPLEXES DELAYED PRECORDIAL R/S TRANSITION ABNORMAL ECG COMPARED TO ECG 02/03/2022 10:01:32 VENTRICULAR ECTOPIC NOW PRESENT Electronically Signed On 01-14-2023 12:33:43 PAID SEARCH MARKETING STRATEGIST by Eduardo Aguilar D.O.
[2023-01-14 11:55] LABS: Hematocrit 43.2 % (37.0-47.0); Hemoglobin 14.3 g/dL (12.0-15.0)
[2023-01-14 12:03] LABS: Albumin Level 4.8 g/dL (3.5-5.1); Estimated Glomerular Filt Rate 55; Glucose 112 mg/dL (65-110)
[2023-01-14 12:21] LABS: Hemoglobin A1C 5.9 % (<5.7)
[2023-01-14 15:03] LABS: Urine Cotinine NEGATIVE
== END 2023-01-14 10:37 | disposition home or self-care (01) ==
PROVIDERS: PCP Family Medicine Adolescent Medicine; Visit Provider Orthopaedic Surgery
DX: Z01.818 Encounter for other preprocedural examination (principal); E11.9 Type 2 diabetes mellitus without complications; E78.2 Mixed hyperlipidemia; M16.12 Unilateral primary osteoarthritis, left hip; K21.9 Gastro-esophageal reflux disease without esophagitis; I47.10 Supraventricular tachycardia, unspecified; R94.31 Abnormal electrocardiogram [ECG] [EKG]
CPT/HCPCS: 80307; 82040; 82565; 82947; 83036; 85014; 85018; 93005

== ENCOUNTER 2023-03-18 09:41 | Outpatient (CLI) | payer MEDICARE, SELFPAY ==
--- NOTE | ~2023-03-18 | NM_ITS ---
EXAMINATION: NM iván stress w perfusion DATE: 03/18/2023 12:16 INDICATION: Abnormal EKG TECHNIQUE: Rest images were obtained following intravenous administration of 10.6 mCi Tc99m tetrofosm in (Myoview). The patient was infused intravenously with Lexiscan (Regadenoson). Then, 34.71 mCi Tc99 m tetrofosmin (Myoview) was administered intravenously, and stress images were obtained. Data was rec onstructed into short axis and horizontal and vertical long axis SPECT images. Gated SPECT images wer e also obtained. COMPARISON: None. FINDINGS: There is no definite reversible or fixed perfusion abnormality to suggest ischemia or infar ction. There is normal left ventricular chamber size, wall motion and ejection fraction. Left ventr icular ejection fraction measures 69%. IMPRESSION: 1. Normal myocardial perfusion at rest and during stress. 2. Left ventricular ejection fraction measuring 69%. Reviewed, dictated and finalized at location A. TIER
--- NOTE | 2023-03-18 09:54 | EST_ITS ---
Patient Info Name: Darlene Verdugo Age: 72 years : 1950 Gender: Female Ht: 64 in Wt: 210 lbs BSA: 2.12 m2 HR: 87 bpm BP: 121 / 83 mmHg Heart Rhythm: Sinus Rhythm Exam Date: 03/18/2023 10:33 AM Exam Location: Echo Lab Patient Status: Outpatient Admit Date: 03/18/2023 Staff Ordering Physician: Khurram Hoffman MD Attending Provider: Khurram Hoffman MD Exercise Technologist: Anali Pollock CT Exercise Physician: Eduardo Aguilar DO Exam Type: CA stress iván w NM Study Info Indications R94.31 - Abnormal electrocardiogram ECG EKG A regadenoson stress test was performed. Summary 1. 1. Negative lexiscan stress test for ischemic ST changes by ECG criteria. 2. 2. Stable hemodynamics throughout the test. 3. 3. Nuclear scan to follow and will be reported separately. Please correlate with it. 4. 4. Patient informed of the above results. Protocol: Lexiscan Stress ECG Details Stage: REST Duration (min): 1 min : 14 sec HR (bpm): 86 SBP (mmHg): 121 DBP (mmHg): 83 Stage: REST Duration (min): 7 min : 18 sec HR (bpm): 79 SBP (mmHg): 121 DBP (mmHg): 83 Stage: STAGE 1 Duration (min): 1 min : 0 sec HR (bpm): 99 SBP (mmHg): 124 DBP (mmHg): 59 Stage: RECOVERY Duration (min): 1 min : 0 sec HR (bpm): 106 SBP (mmHg): 124 DBP (mmHg): 59 Stage: RECOVERY Duration (min): 2 min : 0 sec HR (bpm): 102 SBP (mmHg): 124 DBP (mmHg): 59 Stage: RECOVERY Duration (min): 3 min : 0 sec HR (bpm): 105 SBP (mmHg): 111 DBP (mmHg): 67 Stage: RECOVERY Duration (min): 3 min : 6 sec HR (bpm): 102 SBP (mmHg): 111 DBP (mmHg): 67 Rest HR: 79 bpm Peak HR: 108 bpm Rest Sys BP: 121 mmHg Peak Sys BP: 124 mmHg Max Pred HR: 149 bpm % Max Pred HR: 72 % Target HR: 127 bpm Max RPP: 13,392 bpm*mmHg Termination Reason: Completed protocol Cardiac Symptoms: Shortness of breath, Lightheadedness Total Time: 1 min : 0 sec Rest Reina BP: 83 mmHg Peak Reina BP: 59 mmHg Total Dose: 0.4 mg Resting ECG Sinus rhythm with intermittent PVC's. Stress ECG No ST changes. Arrhythmias None. Report Signatures
== END 2023-03-18 09:42 | disposition home or self-care (01) ==
LOC: ANHIMG 09:42
PROVIDERS: PCP Family Medicine Adolescent Medicine; Visit Provider Family Medicine Adolescent Medicine
DX: R94.31 Abnormal electrocardiogram [ECG] [EKG] (principal)
CPT/HCPCS: 78452; 93017; A9502; J2785

== ENCOUNTER 2023-05-04 08:04 | Outpatient (CLI) | payer MEDICARE, SELFPAY ==
[2023-05-04 09:46] LABS: Albumin Level 4.6 g/dL (3.5-5.1); Basophils Percent Auto 0.4 % (0.2-1.2); Eosinophils Absolute Auto 0.1 K/mm3 (0-0.3); Eosinophils Percent Auto 1.5 % (0-4.4); Hematocrit 45.6 % (37.0-47.0); Hemoglobin 14.6 g/dL (12.0-15.0); Immature Granulocyte Absolute 0.03 K/mm3 (0.00-0.031); Immature Granulocyte Percent A 0.3 % (0-0.5); Lymphocytes Absolute Auto 1.88 K/mm3 (0.9-3.2); Lymphocytes Percent Auto 20.3 % (18.3-44.2); Mean Corpuscular Hemoglobin 31.4 pg (26-34); Mean Corpuscular Volume 98.1 fl (80-100); Mean Platelet Volume 11.8 fl (7.4-10.4); Monocytes Absolute Auto 0.6 K/mm3 (0.1-0.6); Monocytes Percent Auto 6.9 % (2.6-8.5); Neutrophils Absolute Auto 6.6 K/mm3 (1.3-6.7); Neutrophils Percent Auto 70.6 % (45.5-73.1); Platelet Count Result 195 k/mm3 (150-375); Red Blood Count 4.65 M/mm3 (4.2-5.4); Red Cell Distribution Width 13.1 % (11.5-14.5); White Blood Count 9.3 K/mm3 (4.5-10.0)
[2023-05-04 09:49] LABS: Anion Gap 5 mmol/L (8-16); Blood Urea Nitrogen 22 mg/dL (7-17); Calcium 9.8 mg/dL (8.4-10.2); Carbon Dioxide 30 mmol/L (22-30); Chloride 105 mmol/L (98-107); Estimated Glomerular Filt Rate > 60; Glucose 109 mg/dL (65-110); Potassium 4.3 mmol/L (3.4-5.0); Sodium 140 mmol/L (137-145)
[2023-05-04 09:55] LABS: Hemoglobin A1C 6.3 % (<5.7)
[2023-05-04 11:28] LABS: MRSA (PCR) NOT DETECTED (NOT DETECTE)
[2023-05-04 13:08] LABS: Urine Cotinine NEGATIVE
== END 2023-05-04 08:05 | disposition home or self-care (01) ==
LOC: ANHSURGERY 08:08
PROVIDERS: Anesthesiology; PCP Family Medicine Adolescent Medicine; Visit Provider Orthopaedic Surgery
DX: Z01.818 Encounter for other preprocedural examination (principal); M16.12 Unilateral primary osteoarthritis, left hip; E11.9 Type 2 diabetes mellitus without complications
CPT/HCPCS: 80048; 80307; 82040; 83036; 85025; 87641

== ENCOUNTER 2023-05-26 00:37 | Day surgery (SDC) | payer MEDICARE, SELFPAY ==
--- NOTE | 2023-05-04 07:52 | PC.NURSE ---
PRE-OP INSTRUCTIONS, PLEASE READ CAREFULLY Report to the Outpatient Waiting Room, entrance under the green pavilion located off [facility], at time _0600_ on date _05/26/23_. Planned Procedure Time: _0730_. PACK A SMALL OVERNIGHT BAG AND LEAVE IN THE CAR ALONG WITH YOUR WALKER Time changes happen often and if your time is changed the preop area will call you the afternoon before. - You and your visitor will be asked to self-screen and do not enter if you have any COVID symptoms. - A mask is optional within the hospital at this time. -VISITING HOURS 8AM-8PM Patients may have clear liquids (water, carbonated beverages, clear teas, apple juice) until 3 hours prior to surgery (0430 AM) with a maximum of 20 ounces. - No food from midnight until time of surgery Take the following medications with a SIP of water the morning of surgery: _TYLENOL IF NEEDED FOR PAIN_ DO NOT STOP ANY OF YOUR OTHER PRESCRIPTION MEDICATIONS PRIOR TO SURGERY ?EXCEPT THE FOLLOWING Medications to discontinue per DR. CARBONE - _DICLOFENAC 7 DAYS PRIOR TO SURGERY, Date to take last dose 05/18/23_ Medications to discontinue per ANESTHESIA - _MULTIVITAMIN 3 DAYS PRIOR TO SURGERY, Date to take last dose 05/22/23_ Please no make-up, nail maltese, hairspray, perfume, deodorant, or body powder the day of surgery. No jewelry (including any body piercings) or valuables the day of surgery, leave them at home. Please take a shower or bath the night before, or the morning of, surgery with an antibacterial soap. Wear comfortable, loose fitting clothing. - Jewelry must be removed prior to entering the operating room. Rings and piercings that are not removed may be cut off. - The hospital will not accept responsibility for valuables. - Please leave all valuables, including medications, at home the day of surgery. If you are going home after surgery, a licensed van driver helper must drive you home. - NO public transportation without another adult if you receive anesthesia. - We recommend that an adult stay with you for 24 hours following discharge. - We also recommend that you do not drive, make important decision, drink alcoholic beverages, or take any drugs that were not prescribed by your health care provider for at least 24 hours after your discharge time. Follow any additional instructions given to you from your surgeon. If you or anyone in your household have experienced Covid symptoms in the past week, please notify your surgeon or the nurse liaison at the phone number below for possible testing. Instructions given to _PATIENT_and asked if any additional questions and then verbalized understanding. Patient advised to call surgeon office or pre surgery nurse liaison [phone] if any additional questions.
[2023-05-04 08:25] VITALS: BP 162/72; PULSE 88; RESP 18; TEMP 36.8; O2SAT 97; BMI 38.5
[2023-05-26] VITALS (16 sets, daily range): BP systolic 106–146; BP diastolic 52–90; PULSE 83–99; RESP 12–21; TEMP 36.2–37.1; O2SAT 94–100
--- NOTE | ~2023-05-26 | XR_ITS ---
Left Hip Technique: Portable AP and lateral views Clinical History: Status post hip arthroplasty Findings: Patient is status post left hip arthroplasty. Orthopedic hardware alignment appears anatomi c. No hardware complication is evident. Subcutaneous emphysema and swelling is likely postoperative i n nature. No acute osseous fracture is seen. Impression: Status post total left hip arthroplasty, without evidence of hardware complication. Reviewed, dictated and finalized at location . Impression: Status post total left hip arthroplasty, without evidence of hardware complicat ion.
[2023-05-26] MEDS: LACTATED RINGERS 1,000 ML 30 ML IV CONT ×2 (06:30→09:30)
[2023-05-26 06:34] LABS: Glucose Point of Care 128 mg/dl (65-105)
--- NOTE | 2023-05-26 06:39 | WPDANESEPPF ---
Anes - Initial Pre Proc Eval Procedure: Operation Date: 05/26/23 07:30 Proposed Procedures p Left Total Hip Arthroplasty - Roosevelt Metz MD Date/Time: 05/26/23 06:39 Surgeon: Roosevelt Metz MD Pre Op Diagnosis: primary oa left hip Patient Data Age: 73 Gender: F Height: 1.59 m Weight: 97 kg Last Vital Signs Temp 36.8 C 05/04/23 08:25 Pulse 88 05/04/23 08:25 Resp 18 05/04/23 08:25 BP 162/72 H 05/04/23 08:25 Pulse Ox 97 05/04/23 08:25 O2 Del Method Room Air 05/04/23 08:25 Allergies Allergy/AdvReac Type Severity Reaction Status Date / Time Penicillins Allergy Unknown Rash Verified 05/26/23 06:29 Home Medications Medication Instructions Recorded Confirmed Type calcium carbonate 600 mg-vitamin 1 tablet PO BID 01/02/20 05/04/23 History D3 20 mcg (800 unit) tablet cholecalciferol (vitamin D3) 125 See Rx Instructions .Route .COMPLEX 02/01/22 05/04/23 History mcg (5,000 unit) capsule multivitamin 1 tablet PO DAILY 05/17/22 05/04/23 History atorvastatin 20 mg tablet See Rx Instructions .Route 07/27/22 05/04/23 Rx .COMPLEX #90 tabs metformin 500 mg tablet,extended 500 mg PO BID #180 tabs 10/24/22 05/04/23 Rx release 24 hr diclofenac sodium 75 mg 75 mg PO BID #60 tabs 11/28/22 05/04/23 Rx tablet,delayed release pantoprazole 40 mg tablet,delayed 40 mg PO QAM #90 tabs 02/04/23 05/04/23 Rx release acetaminophen 500 mg tablet 1,000 mg PO Q6H PRN Pain 05/04/23 05/26/23 History Laboratory Tests 05/26/23 06:27 POC Capillary Glucose 128 H mg/dl (65-105) Patient hx anesthesia problems: none Family hx anesthesia problems: none Results Review: All pre-operative results and documents have been reviewed as part of the pre-operative evaluation. [facility] Past Medical History Medical History Brain tumor age 6 Carpal tunnel syndrome of right wrist (~1998) GERD (gastroesophageal reflux disease) Lumbar stenosis with neurogenic claudication Osteoarthritis PONV (postoperative nausea and vomiting) Sciatica, right side SVT (supraventricular tachycardia) s/p ablation 2013 x2 Surgical History Surgical History History of breast lump removal (~2012) Left breast History of cholecystectomy History of hysterectomy (~2002) History of lumbar surgery History of total right hip arthroplasty (02/2022) L3-4 & L4-5 hemilaminectomy Family History Family History Mother Hypothyroidism Father Family history of cardiovascular disease Heart disease Sibling Hypertension Sibling Hypertension Sibling Hypertension Other Colon polyp Social History Social History Social History: 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 She is a former smoker. She lives with her . He is the durable power criminal defense attorney for healthcare. She has 2 daughters. She is a full code. No marijuana illicit drugs are alcohol use. Smoking packs per day: 0.5 Smoking cigarettes per day: 10.0 Years smoked: 5 Smoking pack-years: 2.50 Smoking status: Former smoker Tobacco type: cigarettes Second hand tobacco smoke exposure: No Smoking end date: 09/05/79 Additional smoking assessment comments: PT DENIES ALL FORMS OF TOBACCO USE Alcohol intake: never Substance use: never Substance use type: does not use Lack of Transportation: No Lack of Food: Never True Current Housing: I Have Housing Concerned About Future Housing: No Difficulty Paying Gas/Electric Bills: No Difficulty Paying for Meds: No Currently Unemployed: No Education: High School Diploma/GED Difficulty w/ Childcare or Family Care: No Living arrangements: with family Additional living arrangements comments: Occupation/Education: reti
[2023-05-26] MEDS: TRANEXAMIC ACID 1,000MG/ISO100 1,000 MG/100 ML BAG 200 MG IVPB (06:40)
[2023-05-26] MEDS: fentaNYL CITRATE INJ (*CRX) 100 MCG/2 ML VIAL 50 MCG IV PUSH (06:44)
[2023-05-26] MEDS: ACETAMINOPHEN 500 MG TABLET 1000 MG PO ×4 (06:45→23:49)
--- NOTE | 2023-05-26 07:13 | WPDHPUPDATE1 ---
History and Physical Update Update Date/Time: 05/26/23 07:13 History and Physical has been reviewed, including an updated exam of the patient. There are NO changes in the patient's condition. Risks, benefits, and alternatives have been discussed and questions answered. Patient agrees to proceed with procedure.
[2023-05-26] MEDS: ceFAZolin 2 GM/D5W 50 ML 2 GM/50 ML BAG IVPB ×3 (07:27→23:51)
[2023-05-26] MEDS: SODIUM CHLORIDE 0.9% IV 37.7 ML, MORPHINE SULFATE INJ (*CRX) 2 MG, ROPivacaine HCL 1% 2... INFILTRATE (08:18)
--- NOTE | 2023-05-26 09:25 | W.PM.PROC2 ---
Procedure Note - Detailed Date of Procedure 05/26/23 Pre-op Diagnosis Primary oa left hip Post-op Diagnosis Same Procedure Performed Left Total Hip Arthroplasty Surgeon Roosevelt Metz MD Pharmacy Graduate Intern Annamarie Raman PA-C Anesthesia General Description of Procedure The patient was given preoperative antibiotics. A general anesthetic was administered. The patient was carefully placed in the lateral decubitus position on the PEG board. The shoulders and hips were carefully positioned for component and leg length positioning reference. The hip was prepped and draped in the usual sterile fashion. A longitudinal incision was created over the posterior aspect of the greater trochanter. Careful dissection was brought down through the deep fascia with electrocautery. A minimally invasive optimized posterior approach to the hip was performed. The short external rotators and capsule were taken down in an L-shaped capsulotomy. The tissue was tagged for later repair using number 2 high strength suture. The femoral neck was measured and taken in situ. The femoral head was removed. The acetabulum was carefully exposed. The inferior capsule was released. The labrum was resected. The acetabulum was sequentially reamed to the intended cup size. The cup was impacted into position with excellent press-fit. Typical anatomic landmarks, including the bony contact points as well as the inferior transverse acetabular ligament were used to confirm cup positioning with preoperative templating. Attention was turned to the femur, which was carefully exposed. The hip was reamed and then broached sequentially. Excellent press-fit was obtained with the broach. The hip was trialed. Measurements were utilized, including the lesser trochanter as well as the center of the femoral head and the tip of the trochanter, and excellent assessment of the offset and leg lengths were confirmed. The real component was impacted into position. Trialing confirmed appropriate leg length and offset with soft tissue balancing as well apparent feel of the leg, both at the knee and the heel. Soft tissues were assessed using the the iliotibial band. Reduction of the posterior capsule and external rotators were also used as a secondary assessment. The hip was copiously irrigated with pulsatile lavage antibiotic solution periodically throughout the procedure. The real components were then assembled and reduced. The hip was stable throughout typical maneuvers, including extension, external rotation to 70 degrees, the position of sleep as well as flexion to 90 degrees with internal rotation past 35 degrees. The shake test confirmed stability without impingement. Osteophytes were removed as necessary. The short external rotators and capsule were repaired back to the posterior trochanter through drill holes. The deep fascia was repaired with running number 2 barbed suture, followed by 2-0 Stratafix suture and 3-0 Stratafix suture in the dermis. Steri-Strips were placed on the skin, followed by a sterile occlusive dressing. There were no complications. Meticulous hemostasis was maintained with the AquaMantys device. The patient was brought to the recovery room in stable condition. There were no complications. Physician dental assistant teacher, Annamarie Raman PA-C, required for surgery; including patient positioning, draping, tissue retraction, maintaining instrument position, hip dislocation/ relocation, wound closure, and dressing placement. Implants The Accolade II hip stem, 127 degree size 5 , was utilized with excellent press-fit. The 52 mm Trident II acetabular component was impacted with excellent press-fit stability. 10 degree elevated polyethylene liner the +2.5, 36 mm Biolox ceramic femoral head was utilized. Estimated Blood Loss 200 Drains No Packing No Pathology None sent Complications No immediate complications Condition Stable Disposition PACU [facility] Billing Surgery - Charge Forward
[2023-05-26] MEDS: HYDROmorphone HCL INJ (*CRX) 1 MG/ML SYR 0.25 MG IV PUSH ×6 (09:42→10:08)
[2023-05-26 10:19] LABS: Glucose Point of Care 161 mg/dl (65-105)
[2023-05-26] MEDS: HYDROmorphone HCL INJ (*CRX) 1 MG/ML SYR 0.5 MG IV PUSH (10:30)
[2023-05-26] MEDS: SODIUM CHLORIDE 0.9% IV 1,000 ML 125 ML IV CONT (11:18)
[2023-05-26] MEDS: ONDANSETRON INJ 4 MG/2 ML VIAL IV PUSH ×2 (11:20→16:42)
--- NOTE | 2023-05-26 11:24 | ADMGEN ---
This patient, Darlene Verdugo, was admitted to Medical Room 346-01. Patient/family oriented to hospital policies and general routines including ID bracelet, bed and alarms, visiting hours, pain management, procedures, bathroom and other care routines, personal items, smoking policy, room service/diet, and visiting hours. Information on how to activate the Rapid Response Team has been discussed. Patient/Family are encouraged to report perceived risks to care and to ask questions if they do not understand what they are told or what they should do.
[2023-05-26 11:26] LABS: Basophils Percent Auto 0.3 % (0.2-1.2); Eosinophils Percent Auto 0.1 % (0-4.4); Hematocrit 38.6 % (37.0-47.0); Hemoglobin 12.6 g/dL (12.0-15.0); Immature Granulocyte Absolute 0.11 K/mm3 (0.00-0.031); Immature Granulocyte Percent A 1.1 % (0-0.5); Lymphocytes Absolute Auto 0.97 K/mm3 (0.9-3.2); Lymphocytes Percent Auto 9.4 % (18.3-44.2); Mean Corpuscular HGB Conc 32.6 g/dl (32-36); Mean Corpuscular Hemoglobin 31.8 pg (26-34); Mean Corpuscular Volume 97.5 fl (80-100); Mean Platelet Volume 11.2 fl (7.4-10.4); Monocytes Absolute Auto 0.2 K/mm3 (0.1-0.6); Monocytes Percent Auto 1.9 % (2.6-8.5); Neutrophils Percent Auto 87.2 % (45.5-73.1); Platelet Count Result 173 k/mm3 (150-375); Red Blood Count 3.96 M/mm3 (4.2-5.4); White Blood Count 10.3 K/mm3 (4.5-10.0)
[2023-05-26 11:36] LABS: Anion Gap 4 mmol/L (8-16); Blood Urea Nitrogen 20 mg/dL (7-17); Calcium 9.1 mg/dL (8.4-10.2); Carbon Dioxide 29 mmol/L (22-30); Chloride 106 mmol/L (98-107); Estimated CRCL calculation 78 ml/min; Estimated Glomerular Filt Rate > 60; Glucose 184 mg/dL (65-110); Potassium 4.2 mmol/L (3.4-5.0); Sodium 139 mmol/L (137-145)
[2023-05-26] MEDS: SENNA/DOCUSATE SODIUM TABLET 2 TAB PO (16:41)
[2023-05-26] MEDS: ASPIRIN 81 MG ENTERIC TABLET PO (16:42)
[2023-05-26] MEDS: metFORMIN HCL XR 500 MG TAB.SR.24H PO (16:42)
[2023-05-26] MEDS: DICLOFENAC SOD 75 MG TABLET.EC PO (17:08)
[2023-05-26] MEDS: traMADol HCL (*CRX) 50 MG TABLET PO (20:43)
[2023-05-26 22:21] LABS: Appearance Urine Clear (Clear); Bilirubin Urine Negative (Negative); Blood Urine Negative (Negative); Color Urine Yellow (Yellow); Glucose Urine UA Negative (Negative); Ketones Urine Negative (Negative); Leukocyte Esterase Ur Negative LEU/UL (Negative); Nitrate Urine Negative (Negative); Protein Urine Negative (Negative); Urobilinogen Urine 0.2 mg/dL (<2.0); pH Urine 5.5 (5.0-9.0)
[2023-05-26 22:24] LABS: Add Urine Microscopic? NO
[2023-05-27 00:45] VITALS: BP 143/74; PULSE 88; RESP 20; TEMP 36.5; O2SAT 99
[2023-05-27 05:43] VITALS: BP 127/80; PULSE 94; RESP 21; TEMP 36.1; O2SAT 100
[2023-05-27 05:52] LABS: Basophils Percent Auto 0.3 % (0.2-1.2); Eosinophils Absolute Auto 0.1 K/mm3 (0-0.3); Eosinophils Percent Auto 0.5 % (0-4.4); Hematocrit 35.7 % (37.0-47.0); Hemoglobin 11.5 g/dL (12.0-15.0); Immature Granulocyte Absolute 0.03 K/mm3 (0.00-0.031); Immature Granulocyte Percent A 0.3 % (0-0.5); Lymphocytes Absolute Auto 1.72 K/mm3 (0.9-3.2); Lymphocytes Percent Auto 16.6 % (18.3-44.2); Mean Corpuscular HGB Conc 32.2 g/dl (32-36); Mean Corpuscular Hemoglobin 31.4 pg (26-34); Mean Corpuscular Volume 97.5 fl (80-100); Mean Platelet Volume 11.3 fl (7.4-10.4); Monocytes Absolute Auto 1.1 K/mm3 (0.1-0.6); Monocytes Percent Auto 10.8 % (2.6-8.5); Neutrophils Absolute Auto 7.4 K/mm3 (1.3-6.7); Neutrophils Percent Auto 71.5 % (45.5-73.1); Platelet Count Result 163 k/mm3 (150-375); Red Blood Count 3.66 M/mm3 (4.2-5.4); Red Cell Distribution Width 13.1 % (11.5-14.5); White Blood Count 10.4 K/mm3 (4.5-10.0)
[2023-05-27] MEDS: ceFAZolin 2 GM/D5W 50 ML 2 GM/50 ML BAG IVPB (06:12)
[2023-05-27] MEDS: ACETAMINOPHEN 500 MG TABLET 1000 MG PO (06:12)
[2023-05-27 07:11] LABS: Anion Gap 6 mmol/L (8-16); Blood Urea Nitrogen 14 mg/dL (7-17); Calcium 9.2 mg/dL (8.4-10.2); Carbon Dioxide 27 mmol/L (22-30); Chloride 107 mmol/L (98-107); Estimated CRCL calculation 68 ml/min; Estimated Glomerular Filt Rate > 60; Glucose 130 mg/dL (65-110); Potassium 3.8 mmol/L (3.4-5.0); Sodium 140 mmol/L (137-145)
--- NOTE | 2023-05-27 07:57 | PCPTNOTE ---
Attempted to see patient for PT, however patient was working with OT.
[2023-05-27] MEDS: ATORVASTATIN 20 MG TABLET PO (08:35)
[2023-05-27] MEDS: polyethylene glycoL 3350 17 GM POWD.PACK PO (08:35)
[2023-05-27] MEDS: metFORMIN HCL XR 500 MG TAB.SR.24H PO (08:35)
[2023-05-27] MEDS: DICLOFENAC SOD 75 MG TABLET.EC PO (08:35)
[2023-05-27] MEDS: SENNA/DOCUSATE SODIUM TABLET 2 TAB PO (08:35)
[2023-05-27] MEDS: PANTOPRAZOLE 40 MG TABLET PO (08:35)
[2023-05-27] MEDS: predniSONE 5 MG TABLET PO (08:35)
[2023-05-27] MEDS: ASPIRIN 81 MG ENTERIC TABLET PO (08:35)
--- NOTE | 2023-05-27 08:44 | PM.DS ---
DS: Admitting Diagnosis Discharge Date 05/27/23 Admitting Diagnosis Hip arthritis. DS: Discharge Diagnosis Discharge Diagnosis (1) Orthopedic aftercare for joint replacement: Code(s): Z47.1 - Aftercare following joint replacement surgery Status: Acute (2) Status post total hip replacement, left: Code(s): Z96.642 - Presence of left artificial hip joint Status: Acute Plan Postop day 1: Left Total hip arthroplasty. Patient tolerated procedure well. No complications. Pain manageable with pain medication. No numbness or tingling. We had a lengthy discussion regarding postoperative wound care, limitations, expectations, and exercises. Patient shows good understanding. Patient has had initial physical therapy and is tolerating it well. DVT prophylaxis: 81 mg baby aspirin b.i.d. for 14 days. Short frequent walks. Pain medication: Percocet. Diclofenac. Patient has followup appointment with Dr. Metz in 3 weeks DS: Summary Hospital Course Reason for hospitalization: Total hip arthroplasty Hospital Course: Patient tolerated procedure well. Has had initial PT/OT and tolerating it well. Status at Discharge Functional status at discharge: uses cane/walker Overall status at discharge: patient is progressing back to baseline Time Spent with Patient Time attestation: Total time spent providing and/or coordinating discharge services: Exam Narrative: Overweight 73 y/o female. Resting comfortably in bed. Wearing compression socks bilaterally. Dressing dry and intact with no drainage. Mild swelling. No ecchymosis. No erythema. No hematoma. Range of motion limited due to pain. Calf nontender. Thigh nontender. Neurologic status intact. No varicosities. Distal pulses palpable. DS: Data Data Completed and Pending Labs on day of discharge: Labs from last 24 hours 05/27/23 05/26/23 05/26/23 05:32 22:15 11:16 WBC 10.4 H 10.3 H RBC 3.66 L 3.96 L Hgb 11.5 L 12.6 Hct 35.7 L 38.6 MCV 97.5 97.5 MCH 31.4 31.8 MCHC 32.2 32.6 RDW 13.1 13.0 Plt Count 163 173 MPV 11.3 H 11.2 H Immature Gran % (Auto) 0.3 1.1 H Neut % (Auto) 71.5 87.2 H Lymph % (Auto) 16.6 L 9.4 L Leon % (Auto) 10.8 H 1.9 L Eos % (Auto) 0.5 0.1 Baso % (Auto) 0.3 0.3 Lymph # (Auto) 1.72 0.97 Leon # (Auto) 1.1 H 0.2 Eos # (Auto) 0.1 0.0 Baso # (Auto) 0.0 0.0 Abs Immat Gran (auto) 0.03 0.11 H Absolute Neuts (auto) 7.4 H 9.0 H Absolute Nucleated RBC 0.000 0.000 Nucleated RBC % 0.0 0.0 Sodium 140 139 Potassium 3.8 4.2 Chloride 107 106 Carbon Dioxide 27 29 Anion Gap 6 L 4 L BUN 14 D 20 H Creatinine 0.70 0.60 L Estim Creat Clear Calc 68 78 Estimated GFR > 60 > 60 Glucose 130 H 184 H POC Capillary Glucose Calcium 9.2 9.1 Urine Color Yellow Urine Appearance Clear Urine pH 5.5 Ur Specific Melfa 1.010 Urine Protein Negative Urine Glucose (UA) Negative Urine Ketones Negative Ur Blood (Man) Negative Urine Nitrate Negative Urine Bilirubin Negative Urine Urobilinogen 0.2 Leukocyte Esterase Rfl Negative 05/26/23 10:15 WBC RBC Hgb Hct MCV MCH MCHC RDW Plt Count MPV Immature Gran % (Auto) Neut % (Auto) Lymph % (Auto) Leon % (Auto) Eos % (Auto) Baso % (Auto) Lymph # (Auto) Leon # (Auto) Eos # (Auto) Baso # (Auto) Abs Immat Gran (auto) Absolute Neuts (auto) Absolute Nucleated RBC Nucleated RBC % Sodium Potassium Chloride Carbon Dioxide Anion Gap BUN Creatinine Estim Creat Clear Calc Estimated GFR Glucose POC Capillary Glucose 161 H Calcium Urine Color Urine Appearance Urine pH Ur Specific Melfa Urine Protein Urine Glucose (UA) Urine Ketones Ur Blood (Man) Urine Nitrate Urine Bilirubin Urine Urobilinogen Leukocyte Esterase Rfl Discharge Plan Discharge Patient Disposition: Home, Self
== END 2023-05-27 10:50 | disposition home or self-care (01) ==
LOC: ANHSURGERY 07:18 → ANH3MED 11:00
PROVIDERS: Physician Assistant Surgical; PCP Family Medicine Adolescent Medicine; Visit Provider Orthopaedic Surgery
PROC: (CPT 27130; principal; 2023-05-26 07:30)
DX: M16.12 Unilateral primary osteoarthritis, left hip (principal); E78.5 Hyperlipidemia, unspecified; E11.9 Type 2 diabetes mellitus without complications; K21.9 Gastro-esophageal reflux disease without esophagitis; Z79.84 Long term (current) use of oral hypoglycemic drugs; E66.9 Obesity, unspecified; Z68.37 Body mass index [BMI] 37.0-37.9, adult
CPT/HCPCS: 27130; 36415; 73502; 80048; 80307; 82040; 82948; 83036; 85025; 86850; 86900; 86901; 87641; 97110; 97116; 97161; 97165; 97530; 97535; A9270; C1713; C1776; J0171; J0690; J1100; J1170; J1885; J2270; J2405; J2704; J2795; J3010; J7030; J7120; J7512

== ENCOUNTER 2023-07-11 14:17 | Outpatient (CLI) | payer MEDICARE, SELFPAY ==
--- NOTE | ~2023-07-11 | XR_ITS ---
EXAMINATION: XR hip LT min 2V DATE: 07/11/2023 14:37 INDICATION: Presence of left artificial hip joint. TECHNIQUE: 2 views of left hip were obtained. COMPARISON: Left hip radiographs 05/26/2023 FINDINGS: There is a total left hip arthroplasty in near-anatomic alignment. No fracture. No peripros thetic lucency to suggest loosening or infection. Osteitis pubis is noted. IMPRESSION: 1. Total left hip arthroplasty in near-anatomic alignment. Reviewed, dictated and finalized at location A.
== END 2023-07-11 14:18 | disposition home or self-care (01) ==
LOC: ANHIMG 14:20
PROVIDERS: PCP Family Medicine Adolescent Medicine; Visit Provider Orthopaedic Surgery
DX: Z96.642 Presence of left artificial hip joint (principal)
CPT/HCPCS: 73502

== ENCOUNTER 2025-01-10 08:00 | Outpatient (CLI) | payer MEDICARE, SELFPAY ==
--- NOTE | ~2025-01-10 | US_ITS ---
US abdomen limited Indication: R74.01 - Elevation of levels of liver transaminase levels Comparison: None Technique: Sarmiento-scale and color Doppler images were obtained. Findings: LIVER: Moderate increased echogenicity of the liver. . GALLBLADDER/BILIARY: Post cholecystectomy. CBD 8 mm. Newfield sign negative. PANCREAS: Pancreas limited by bowel gas. Right Kidney: Right kidney 9.5 cm, normal. Impression: Moderate hepatic steatosis Reviewed, dictated and finalized at location P. . SYSTEMS ADMINISTRATOR Impression: Moderate hepatic steatosis
== END 2025-01-10 08:01 | disposition home or self-care (01) ==
LOC: MICIMG 08:01
PROVIDERS: PCP Family Medicine Adolescent Medicine; Visit Provider Nurse Practitioner Family
DX: R74.01 Elevation of levels of liver transaminase levels (principal); K76.0 Fatty (change of) liver, not elsewhere classified
CPT/HCPCS: 76705